=== PATIENT | female | born 1940 | race African-American/Black ===

== ENCOUNTER 2019-03-20 03:16 | Inpatient (IN) ==
[2019-03-20 03:41] LABS: Basophils # 0.1 K/mm3 (0-0.2); Basophils % 0.5 % (0.1-2.0); Eosinophils # 0.1 K/mm3 (0.0-0.4); Eosinophils % 0.5 % (0.1-12.0); Hemoglobin 10.9 g/dL (12.2-16.2); Lymphocytes # 5.6 K/mm3 (0.7-4.5); Mean Corpuscular HGB Conc 30.3 g/dL (31.8-35.4); Mean Corpuscular Volume 102.4 fl (81-99); Mean Platelet Volume 8.6 fl (7.4-10.4); Monocytes # 0.4 K/mm3 (0.1-1.0); Monocytes % 3.6 % (1.7-9.3); Neutrophils # 4.7 K/mm3 (1.8-7.8); Neutrophils % 43.5 % (37.0-80.0); Platelet Count 261 K/mm3 (142-424); Red Blood Count 3.52 M/mm3 (4.20-5.40); Red Cell Distribution Width 13.2 % (11.5-17.5); White Blood Count 10.8 K/mm3 (4.8-10.8)
[2019-03-20 03:45] LABS: ABG Base Excess -6.6 mmol/L (-2.4-2.3); ABG HCO3 20.3 mmhg (22.0-26.0); ABG Oxygen Saturation 88 % (90-100); ABG PCO2 45.4 mmhg (35.0-45.0); ABG PH 7.27 mmol/L (7.35-7.45); ABG TCO2 21.7 mmhg (23-27)
[2019-03-20 03:46] LABS: Alanine Aminotransferase 28 U/L (12-78); Albumin/Globulin Ratio 0.5 (1.1-1.8); Alkaline Phosphatase 66 U/L (46-116); Anion Gap 17.2 mEq/L (5-15); Aspartate Amino Transferase 36 U/L (15-37); Bilirubin,Total 0.2 mg/dL (0.2-1.0); Blood Urea Nitrogen 49 mg/dL (7-18); Calcium 8.4 mg/dL (8.5-10.1); Carbon Dioxide 21 mmol/L (21.0-32.0); Chloride 98 mmol/L (98-107); Globulin 5.5 gm/dl (1.3-3.2); Glucose 259 mg/dL (74-106); Sodium 132 mmol/L (136-145); Total Protein,Serum 8.5 gm/dL (6.4-8.2)
[2019-03-20 03:46] LABS: Allen's Test Patient Unable
[2019-03-20 03:57] LABS: Hypochromasia 1+; Lymphocytes % 55 % (10-50); Macrocytosis 2+; Neutrophils % 41 % (42-76); Total Cells Counted 100
[2019-03-20 04:07] LABS: Microscopic, Urine URINE MICROSCOPIC (MICROSCOPIC)
[2019-03-20 04:11] LABS: Appearance,Urine CLEAR (Clear); Bilirubin,Urine Negative (Negative); Blood, Urine TRACE-I (Negative); Color,Urine YELLOW (Yellow); Glucose,Urine (UA) TRACE (Negative); Ketones,Urine Negative (Negative); Leukocyte Esterase,Urine Negative (Negative); PH,Urine 6.5 (5.0-8.5); Protein,Urine Negative (Negative); Specific Gravity, Urine 1.025 (1.005-1.030); Urobilinogen,Urine 0.2 EU/dl (0.2)
[2019-03-20 04:14] LABS: RBC,Urine Occasional #/hpf (0-3); WBC,Urine Occasional #/hpf (0-3)
--- NOTE | 2019-03-20 04:21 | Emergency Department Note ---
ED Disposition Clinical Impression: HCAP (healthcare-associated pneumonia), Dystonia, Obesity (BMI 30-39.9), Hyponatremia, Tinea corporis Acute renal failure (ARF) Qualifiers: Acute renal failure type: unspecified Qualified Code(s): N17.9 - Acute kidney failure, unspecified Sepsis Qualifiers: Sepsis type: sepsis due to unspecified organism Qualified Code(s): A41.9 - Sepsis, unspecified organism Schizophrenia Qualifiers: Schizophrenia type: unspecified Qualified Code(s): F20.9 - Schizophrenia, unspecified Fall Qualifiers: Encounter type: initial encounter Qualified Code(s): W19.XXXA - Unspecified fall, initial encounter Diabetes mellitus Qualifiers: Diabetes mellitus type: type 2 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 Diabetes mellitus complication status: with other specified complication Qualified Code(s): E11.69 - Type 2 diabetes mellitus with other specified complication; 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 The time I documented below is in addition to time spent performing reported procedures but includes the following listed in this critical care notation. Medical Decision Making - Medical Records Medical records reviewed: Yes: I reviewed the patient's medical records. - [place] Inquiry Pt receiving controlled substance: No Vital Signs: 03/20/19 03:17 03/20/19 04:14 Temperature 98 F Temperature Source Oral Pulse Rate [Right Radial] 100 H 87 Respiratory Rate 18 18 Blood Pressure [Right Arm] 160/75 H 138/76 Blood Pressure Mean [Right Arm] 103 96 02 Sat by Pulse Oximetry 95 95 Oxygen Delivery Method Room Air Room Air - Lab Data Lab results reviewed: Yes: I reviewed the patient's lab results. Lab Results 03/20/19 03:23: Sodium 132 L, Potassium 4.2, Chloride 98, Carbon Dioxide 21, Anion Gap 17.2 H, BUN 49 H, Creatinine 4.13 H, Estimated Creat Clear 16, Estimated GFR 10 L*, Est GFR ( Amer) 13 L*, Glucose 259 H, Calcium 8.4 L, Total Bilirubin 0.2, AST 36, ALT 28, Alkaline Phosphatase 66, Troponin I < 0.02, Total Protein 8.5 H, Albumin 3.0 L, Globulin 5.5 H, Albumin/Globulin Ratio 0.5 L 03/20/19 03:23: WBC 10.8, RBC 3.52 L, Hgb 10.9 L, Hct 36.0 L, MCV 102.4 H, MCH 31.0, MCHC 30.3 L, RDW 13.2, Plt Count 261, MPV 8.6, Neut % (Auto) 43.5, Lymph % (Auto) 52.0 H, [place] % (Auto) 3.6, Eos % (Auto) 0.5, Baso % (Auto) 0.5, Neut # (Auto) 4.7, Lymph # (Auto) 5.6 H, [place] # (Auto) 0.4, Eos # (Auto) 0.1, Baso # (Auto) 0.1, Total Counted 100, Neutrophils % (Manual) 41 L, Band Neutrophils % 4.0, Lymphocytes % (Manual) 55 H, Platelet Estimate Normal, Hypochromasia 1+, Poikilocytosis 1+, Macrocytosis 2+ 03/20/19 03:23: Total Valproic Acid 62.9 03/20/19 03:23: Total Creatine Kinase 383 H 03/20/19 03:23: Hemoglobin A1c 8.2 H 03/20/19 03:25: Specimen Source Right radial, O2 % 28%, 2 lpm nvc, ABG pH 7.27 L , ABG pCO2 45.4 H, ABG pO2 64.0 L, ABG HCO3 20.3 L, ABG Total CO2 21.7 L, ABG O2 Saturation 88 L, ABG Base Excess -6.6 L, Emmett Test Patient unable 03/20/19 03:54: Lactate 2.6 H 03/20/19 03:54: Ammonia 18 L 03/20/19 04:00: Urine Color Yellow, Urine Appearance Clear, Urine pH 6.5, Ur Specific [place] 1.025, Urine Protein Negative, Urine Glucose (UA) Trace, Urine Ketones Negative, Urine Blood Trace-i, Urine Nitrate Negative, Urine Bilirubin Negative, Urine Urobilinogen 0.2, Ur Leukocyte Esterase Negative, Urine RBC Occasional, Urine WBC Occasional, Ur Squamous Epith Cells 10-20, Ur Renal Epithelial Cell 3-5 Result diagrams: 03/20/19 03:23 03/20/19 03:23 Orders (Tests/Meds): ED MEDICATIONS Generic Name Dose Route Start Last Admin Trade Name Freq PRN Reason Stop Dose Admin Sodium Chloride 1,000 mls @ 999 mls/hr 03/20/19 04:15 03/20/19 04:12 Sod Chlor 0.9% 1000ml Bag IV 03/20/19 05:15 999 mls/hr .Q1H1M MICHAEL Administration Clindamycin Phosphate 900 mg/ 106 mls @ 100 mls/hr 03/20/19 04:45 03/20/19 04:35 Sodium Chloride IV 04/03/19 04:44 100 mls/hr Q6H MICHAEL Administration Protocol Piperacillin Sod/Tazobactam 100 mls @ 200 mls/hr 03/20/19 04:45 03/20/19 04:35 Sod 4.5 gm/ Sodium Chloride IV 04/03/19 04:44 200 mls/hr Q6H MICHAEL Administration Protocol Discontinued Medications Generic Name Dose Route Start Last Admin Trade Name Freq PRN Reason Stop Dose Admin Methylprednisolone Sodium Succinate 125 mg 03/20/19 04:08 03/20/19 04:12 Solu-Medrol 125mg/2ml Vial IV 03/20/19 04:09 125 mg ONCE ONE Administration Ondansetron HCl 4 mg 03/20/19 04:08 03/20/19 04:12 Zofran 4mg/2ml Vial IV 03/20/19 04:09 4 mg ONCE ONE Administration ORDERS Category Date Time Status CT cervical spine wo con Stat Cat Scan 03/20/19 03:[address] head/brain wo con Stat Cat Scan 03/20/19 03:24 Taken XR chest AP Stat Exams 03/20/19 03:25 Taken XR pelvis 1-2V Stat Exams 03/20/19 03:25 Taken Blood Culture Stat Micro 03/20/19 03:25 Received - Radiology Data #1 Image(s): Chest, Pelvis Image Reviewed: Yes I reviewed the patient's radiology image Preliminary Findings: Abnormal (prob rt pneumonia ), No Fracture Seen - CT Data CT Scan: Head, C-Spine Time Received: 05:[address] Reviewed: Yes: I have viewed the radiologist's interpretation Preliminary Findings: No Fracture Seen - ECG Data Tracing #1 Arrhythmias present: sinus tach Ischemic changes: non-specific ST-T wave changes Altered Mental Status HPI - General Chief Complaint: Altered Mental Status Stated Complaint: Altered Mental Status Time Seen by Provider: 03/20/19 03:35 Mode of Arrival: EMS Source of Information: Patient, EMS, Medical Record Limitations: Altered Mental Status Description of Symptoms (Recalled from ER Triage Doc. by RN): pt fell tonight at approx 2230 pt was placed back in bed by staff and had some vomiting at that time. At approx 0235 this morning, ems was called and notified that patient was found in the floor once again by staff and is now having altered mental status and snoring respirations. - History of Present Illness HPI narrative: [facility] and again later with change in mental status and was brought to ed for eval - she had vomited and no def chest pain and no def sz - MD complaint: altered mental status Onset (ago): day(s) Timing confirmed by: other (jail staff) Severity: moderate Associated symptoms: denies other symptoms - Related Data Home Medications Medication Instructions Recorded Confirmed Aspirin [Aspirin 81mg chewable 81 mg PO DAILY 05/18/18 03/20/19 tab] Baclofen [Lioresal 10mg tablet] 10 mg PO DAILY 05/18/18 03/20/19 Benztropine Mesylate [Cogentin 1mg 0 mg PO DAILY 05/18/18 03/20/19 tablet] Divalproex Sodium [Depakote] 250 mg PO ONCE 05/18/18 03/20/19 Lactulose [Enulose] 10 gm PO DAILYP PRN 05/18/18 03/20/19 Lisinopril [Lisinopril 10mg Tab] 10 mg PO DAILY 05/18/18 03/20/19 Metoprolol Succinate [Toprol Xl] 50 mg PO DAILY 05/18/18 03/20/19 Triamterene/Hydrochlorothiazid 1 each PO NEEDED PRN 05/18/18 03/20/19 [Maxzide 75 mg-50 mg Tablet] risperiDONE [Risperdal 0.5mg 0.5 mg PO DAILY 05/18/18 03/20/19 tablet] albuterol sulfate HFA 90 2 puff INHALATION Q4-6H PRN 02/12/19 03/20/19 mcg/actuation aerosol inhaler citalopram 20 mg tablet 20 mg PO DAILY tab 02/12/19 03/20/19 divalproex ER 500 mg 500 mg PO QHS tab 02/12/19 03/20/19 tablet,extended release 24 hr fesoterodine ER 8 mg 8 mg PO DAILY 02/12/19 03/20/19 tablet,extended release 24 hr ondansetron HCl 4 mg tablet 4 mg PO TID PRN 02/12/19 03/20/19 Furosemide [Furosemide 20mg Tab] 20 mg PO DAILY 03/20/19 03/20/19 Sulfamethoxazole/Trimethoprim 1 each PO BID 03/20/19 03/20/19 [Bactrim DS tablet] cephALEXin [Cephalexin 500mg Tab] 500 mg PO TID 03/20/19 03/20/19 Allergies Allergy/AdvReac Type Severity Reaction Status Date / Time No Known Allergies Allergy Verified 03/20/19 03:28 [facility] History - Hepatitis A Screen Drug use history?: No High risk sexual behaviors?: No History of sexually transmitted infection?: No Currently employed?: No Childcare worker?: No Do you have indoor plumbing?: Yes Do you have electricity?: Yes Attestation statement:: This patient has been screened for Hepatitis A risk factors. I have reviewed the patient's past medical history: Yes Medical History: Denies:: Diabetes Mellitus Type 2 - Social History Smoking Status: Unknown if ever smoked Alcohol Intake: never Occupational Status: retired ROS Obtained: Yes All systems reviewed & no additional complaints - Constitutional Constitutional: Reports as per HPI, Denies fever(s), Reports weakness - Eyes Eyes: Denies change in vision - ENT Ears, Nose, Mouth, and Throat: Denies sore throat - Cardiovascular Cardiovascular: Denies chest pain at rest - Respiratory Respiratory: No cough - Gastrointestinal Gastrointestingal: Denies: abdominal pain - Genitourinary Female Genitourinary: Denies hematuria - Musculoskeletal Musculoskeletal: Denies joint pain - Integumentary/Breasts Skin/Breast: Denies rash - Neurologic Neurologic: Reports as per HPI, Denies focal weakness, Reports frequent falls, Denies seizure-like activity Physical Exam - General General appearance: alert, obese - Head Head exam: normocephalic - Eye Eye exam: Present: PERRL, EOMI. Absent: scleral icterus - ENT ENT exam: Present: mucous membranes dry, other (tardive dyskinesia) - Neck Neck exam: Present: trachea midline. Absent: meningismus - Respiratory Respiratory exam: Present: other (dec bs on rt ). Absent: respiratory distress - Cardiovascular Cardiovascular exam: Present: regular rate, systolic murmur, +S4 - Abdominal Exam Abdominal exam: Present: soft - Extremities Exam Extremities exam: Absent: calf tenderness - Neurological Exam Neurological exam: Present: alert, CN II-XII intact, other (positive tremor and inc tone ). Absent: motor sensory deficit - Psychiatric Psychiatric exam: Present: flat affect - Skin Skin exam: Present: rash (consistent with tinea )
--- NOTE | 2019-03-20 08:21 | History & Physical Report ---
*Admission Date: 03/20/19 *Chief complaint: altered mental status *History of present illness: this bf is resident of [facility] and has schizophrenia and niddm and djd - she usually is alert and ambulatory and has tartive dyskinesia - she had [facility] earlier in evening and again later and had change in mental status and was sent to the ed and found to be in arf with prob rt hcap - she meet sepsis criteria and was admitted for eval and treatment - she denied any pain and no hx of sz [facility] History I have reviewed the patient's past medical history: Yes Medical History: Reports:: Diabetes Mellitus Type 2 *Have you ever received a pneumonia vaccine?: (MENTAL STATUS ALTERED AT THIS TIME) *Have you received a flu vaccine this season?: (MENTAL STATUS ALTERED AT THIS TIME) - *Social History Smoking Status: Unknown if ever smoked Alcohol Intake: never *Occupational Status:: retired Housing: assisted living facility *Travel in the last 8 weeks: None Family Hx:: Unable to obtain Review of Systems - Review of Systems Review of systems:: pertinent systems reviewed and negative unless documented below - Constitutional Reports weakness, Denies headache(s) - Eyes Denies change in vision - ENT Denies sore throat - *Cardiovascular Denies chest pain at rest - *Respiratory Reports cough, Denies coughing up blood, Denies pain on inspiration - *Gastrointestinal Reports vomiting, Denies abdominal pain - *Genitourinary Denies blood in urine - *Musculoskeletal Denies joint pain, Denies neck pain - Integumentary/Breasts Reports rash (has tinea type rash to skin ) - *Neurologic Reports frequent falls, Reports weakness, Denies localized weakness, Denies seizure-like activity - Psychiatric Denies anxiety Meds Home Medications Medication Instructions Recorded Confirmed Type Aspirin [Aspirin 81mg chewable 81 mg PO DAILY 05/18/18 03/20/19 History tab] Baclofen [Lioresal 10mg tablet] 10 mg PO DAILY 05/18/18 03/20/19 History Benztropine Mesylate [Cogentin 1mg 0 mg PO DAILY 05/18/18 03/20/19 History tablet] Divalproex Sodium [Depakote] 250 mg PO ONCE 05/18/18 03/20/19 History Lactulose [Enulose] 10 gm PO DAILYP PRN 05/18/18 03/20/19 History Lisinopril [Lisinopril 10mg Tab] 10 mg PO DAILY 05/18/18 03/20/19 History Metoprolol Succinate [Toprol Xl] 50 mg PO DAILY 05/18/18 03/20/19 History Triamterene/Hydrochlorothiazid 1 each PO NEEDED PRN 05/18/18 03/20/19 History [Maxzide 75 mg-50 mg Tablet] risperiDONE [Risperdal 0.5mg 0.5 mg PO DAILY 05/18/18 03/20/19 History tablet] albuterol sulfate HFA 90 2 puff INHALATION Q4-6H PRN 02/12/19 03/20/19 History mcg/actuation aerosol inhaler citalopram 20 mg tablet 20 mg PO DAILY tab 02/12/19 03/20/19 History divalproex ER 500 mg 500 mg PO QHS tab 02/12/19 03/20/19 History tablet,extended release 24 hr fesoterodine ER 8 mg 8 mg PO DAILY 02/12/19 03/20/19 History tablet,extended release 24 hr ondansetron HCl 4 mg tablet 4 mg PO TID PRN 02/12/19 03/20/19 History Furosemide [Furosemide 20mg Tab] 20 mg PO DAILY 03/20/19 03/20/19 History Sulfamethoxazole/Trimethoprim 1 each PO BID 03/20/19 03/20/19 History [Bactrim DS tablet] cephALEXin [Cephalexin 500mg Tab] 500 mg PO TID 03/20/19 03/20/19 History Allergies Allergy/AdvReac Type Severity Reaction Status Date / Time No Known Allergies Allergy Verified 03/20/19 03:28 Exam Vital signs and Labs for Last 24 Hours: Temp Pulse Resp BP Pulse Ox 96.0 F L 90 18 109/51 L 92 L 03/20/19 06:08 03/20/19 06:42 03/20/19 06:08 03/20/19 06:08 03/20/19 06:08 Laboratory Results - last 24 hr 03/20/19 03:23: Sodium 132 L, Potassium 4.2, Chloride 98, Carbon Dioxide 21, Anion Gap 17.2 H, BUN 49 H, Creatinine 4.13 H, Estimated Creat Clear 16, Estimated GFR 10 L*, Est GFR ( Amer) 13 L*, Glucose 259 H, Calcium 8.4 L, Total Bilirubin 0.2, AST 36, ALT 28, Alkaline Phosphatase 66, Troponin I < 0.02, Total Protein 8.5 H, Albumin 3.0 L, Globulin 5.5 H, Albumin/Globulin Ratio 0.5 L 03/20/19 03:23: WBC 10.8, RBC 3.52 L, Hgb 10.9 L, Hct 36.0 L, MCV 102.4 H, MCH 31.0, MCHC 30.3 L, RDW 13.2, Plt Count 261, MPV 8.6, Neut % (Auto) 43.5, Lymph % (Auto) 52.0 H, [place] % (Auto) 3.6, Eos % (Auto) 0.5, Baso % (Auto) 0.5, Neut # (Auto) 4.7, Lymph # (Auto) 5.6 H, [place] # (Auto) 0.4, Eos # (Auto) 0.1, Baso # (Auto) 0.1, Total Counted 100, Neutrophils % (Manual) 41 L, Band Neutrophils % 4.0, Lymphocytes % (Manual) 55 H, Platelet Estimate Normal, Hypochromasia 1+, Poikilocytosis 1+, Macrocytosis 2+ 03/20/19 03:23: Total Valproic Acid 62.9 03/20/19 03:23: Total Creatine Kinase 383 H 03/20/19 03:23: Hemoglobin A1c 8.2 H 03/20/19 03:25: Specimen Source Right radial, O2 % 28%, 2 lpm nvc, ABG pH 7.27 L , ABG pCO2 45.4 H, ABG pO2 64.0 L, ABG HCO3 20.3 L, ABG Total CO2 21.7 L, ABG O2 Saturation 88 L, ABG Base Excess -6.6 L, Emmett Test Patient unable 03/20/19 03:54: Lactate 2.6 H 03/20/19 03:54: Ammonia 18 L 03/20/19 04:00: Urine Color Yellow, Urine Appearance Clear, Urine pH 6.5, Ur Specific [place] 1.025, Urine Protein Negative, Urine Glucose (UA) Trace, Urine Ketones Negative, Urine Blood Trace-i, Urine Nitrate Negative, Urine Bilirubin Negative, Urine Urobilinogen 0.2, Ur Leukocyte Esterase Negative, Urine RBC Occasional, Urine WBC Occasional, Ur Squamous Epith Cells 10-20, Ur Renal Epithelial Cell 3-5 I & O for Last 24 hours: Intake & Output 03/17/19 03/18/19 03/19/19 03/20/19 11:59 11:59 11:59 11:59 Weight 207 lb - Constitutional no acute distress, obese - *Routine HEENT Exam Head: Present: normocephalic Eye: Present: EOMI, PERRL. Absent: conjunctival icterus ENT: Present: mucous membranes dry Comments: protruding tongue with swollen lips which are near baseline - *Routine Neck Exam Absent: JVD - *Routine Respiratory Exam Present: decreased breath sounds, rhonchi - *Routine Cardiovascular Exam Present: RRR, murmur, S4 - *Routine Abdominal Exam Present: soft - *Routine Extremities Exam Present: edema. Absent: calf tenderness - *Routine Skin Exam Present: intact - *Routine Neurological Exam Present: alert, CN II-XII intact. Absent: oriented X3, motor deficit, nystagmus, facial asymmetry has element of inc tone upper ext - Routine Psychiatric Exam Present: unable to assess Assessment and Plan (1) HCAP (healthcare-associated pneumonia) Current visit: Yes Status: Acute Category: Medical Code(s): J18.9 - Pneumonia, unspecified organism (2) Acute renal failure (ARF) Current visit: Yes Status: Acute Qualifiers: Acute renal failure type: unspecified Qualified Code(s): N17.9 - Acute kidney failure, unspecified Category: Medical Code(s): N17.9 - Acute kidney failure, unspecified (3) Sepsis Current visit: Yes Status: Acute Qualifiers: Sepsis type: sepsis due to unspecified organism Qualified Code(s): A41.9 - Sepsis, unspecified organism Category: Medical Code(s): A41.9 - Sepsis, unspecified organism (4) Schizophrenia Current visit: Yes Status: Acute Qualifiers: Schizophrenia type: unspecified Qualified Code(s): F20.9 - Schizophrenia, unspecified Category: Medical Code(s): F20.9 - Schizophrenia, unspecified (5) Dystonia Current visit: Yes Status: Acute Category: Medical Code(s): G24.9 - Dystonia, unspecified (6) Obesity (BMI 30-39.9) Current visit: Yes Status: Acute Category: Medical Code(s): E66.9 - Obe sity, unspecified
--- NOTE | 2019-03-20 10:13 | Pharmacy Consult Notes ---
[facility] Pharmacy VTE Monitoring - Patient Demographics Admission date: 03/20/19 Report Date: 03/20/19 Time: 10:13 Allergies/Adverse Reactions: Patient Allergies No Known Allergies Allergy (Verified 03/20/19 03:28) Height: 1.65 m Weight: 93.894 kg Patient Problems: Current Active Problems (Updated 03/20/19 @ 05:10 by Bryon Beaulieu MD) Fall (Acute) HCAP (healthcare-associated pneumonia) (Acute) Acute renal failure (ARF) (Acute) Sepsis (Acute) Schizophrenia (Acute) Dystonia (Acute) Obesity (BMI 30-39.9) (Acute) Diabetes mellitus (Acute) Hyponatremia (Acute) Tinea corporis (Acute) - VTE Risk Labs: VTE Related Lab Results Hgb 10.9 g/dL (12.2-16.2) L 03/20/19 03:23 Hct 36.0 % (37.0-47.0) L 03/20/19 03:23 Plt Count 261 K/mm3 (142-424) 03/20/19 03:23 BUN 49 mg/dL (7-18) H 03/20/19 03:23 Creatinine 4.13 mg/dL (0.55-1.02) H 03/20/19 03:23 Estimated Creat Clear 16 mL/min (50-200) 03/20/19 03:23 Was VTE Risk Assessment Performed: Yes VTE Score: 4 VTE Risk Level: Low Risk - Prophylaxis VTE Prophylaxis Ordered?: Yes Types of VTE Prophylaxis: Pharmacological Pharmacologic Type: Enoxaparin
[2019-03-20 20:27] LABS: Eosinophils % 0.1 % (0.1-12.0); Hematocrit 31.7 % (37.0-47.0); Mean Corpuscular HGB Conc 30.8 g/dL (31.8-35.4); Mean Corpuscular Volume 100.4 fl (81-99); Mean Platelet Volume 9.1 fl (7.4-10.4); Monocytes # 0.3 K/mm3 (0.1-1.0); Monocytes % 3.3 % (1.7-9.3); Neutrophils # 6.9 K/mm3 (1.8-7.8); Neutrophils % 84.6 % (37.0-80.0); Platelet Count 230 K/mm3 (142-424); Red Blood Count 3.16 M/mm3 (4.20-5.40); Red Cell Distribution Width 13.1 % (11.5-17.5); White Blood Count 8.2 K/mm3 (4.8-10.8)
[2019-03-20 20:29] LABS: Hemoglobin 9.8 g/dL (12.2-16.2)
[2019-03-20 20:32] LABS: Anion Gap 15.6 mEq/L (5-15); Calcium 8.2 mg/dL (8.5-10.1)
[2019-03-21 10:41] LABS: Basophils % 0.2 % (0.1-2.0); Eosinophils % 0.1 % (0.1-12.0); Hematocrit 30.7 % (37.0-47.0); Hemoglobin 9.4 g/dL (12.2-16.2); Lymphocytes # 1.7 K/mm3 (0.7-4.5); Lymphocytes % 21.2 % (10-50); Mean Corpuscular HGB Conc 30.5 g/dL (31.8-35.4); Mean Corpuscular Volume 101.1 fl (81-99); Mean Platelet Volume 8.7 fl (7.4-10.4); Monocytes # 0.5 K/mm3 (0.1-1.0); Monocytes % 6.8 % (1.7-9.3); Neutrophils # 5.6 K/mm3 (1.8-7.8); Neutrophils % 71.7 % (37.0-80.0); Platelet Count 215 K/mm3 (142-424); Red Blood Count 3.04 M/mm3 (4.20-5.40); Red Cell Distribution Width 13.5 % (11.5-17.5); White Blood Count 7.8 K/mm3 (4.8-10.8)
[2019-03-21 10:44] LABS: Calcium 8.1 mg/dL (8.5-10.1)
--- NOTE | 2019-03-21 10:58 | Progress Note ---
Internal Medicine - PN: Subj *Date: 03/21/19 *Time: 10:55 Interval history: more alert and near baseline - pt labs better and will continue current abx Exam Vital signs and Labs for Last 24 Hours: Temp Pulse Resp BP Pulse Ox 98.3 F 90 20 126/45 L 97 03/21/19 07:40 03/21/19 08:00 03/21/19 07:40 03/21/19 07:40 03/21/19 08:35 Laboratory Results - last 24 hr 03/20/19 06:22: POC Glucose 248 H 03/20/19 11:30: POC Glucose 249 H 03/20/19 12:00: Troponin I < 0.02 03/20/19 16:57: POC Glucose 196 H 03/20/19 20:03: WBC 8.2, RBC 3.16 L, Hgb 9.8 L D, Hct 31.7 L, MCV 100.4 H, MCH 30.9, MCHC 30.8 L, RDW 13.1, Plt Count 230, MPV 9.1, Neut % (Auto) 84.6 H, Lymph % (Auto) 12.0, [place] % (Auto) 3.3, Eos % (Auto) 0.1, Baso % (Auto) 0.0 L, Neut # (Auto) 6.9, Lymph # (Auto) 1.0, [place] # (Auto) 0.3, Eos # (Auto) 0.0, Baso # (Auto) 0.0 03/20/19 20:03: Sodium 133 L, Potassium 5.6 H D, Chloride 101, Carbon Dioxide 22, Anion Gap 15.6 H, BUN 44 H, Creatinine 2.94 H D, Estimated Creat Clear 24, Estimated GFR 15 L*, Est GFR ( Amer) 19 L* D, Glucose 152 H D, Calcium 8.2 L 03/20/19 20:05: POC Glucose 168 H 03/21/19 06:12: POC Glucose 120 H 03/21/19 10:04: WBC 7.8, RBC 3.04 L, Hgb 9.4 L, Hct 30.7 L, MCV 101.1 H, MCH 30.8, MCHC 30.5 L, RDW 13.5, Plt Count 215, MPV 8.7, Neut % (Auto) 71.7, Lymph % (Auto) 21.2, [place] % (Auto) 6.8, Eos % (Auto) 0.1, Baso % (Auto) 0.2, Neut # (Auto) 5.6, Lymph # (Auto) 1.7, [place] # (Auto) 0.5, Eos # (Auto) 0.0, Baso # (Auto) 0.0 03/21/19 10:04: Sodium 133 L, Potassium 5.0, Chloride 102, Carbon Dioxide 23, Anion Gap 13.0, BUN 36 H, Creatinine 2.24 H D, Estimated Creat Clear 31, Estimated GFR 21 L, Est GFR ( Amer) 26 L D, Glucose 184 H D, Calcium 8.1 L I & O for Last 24 hours: Intake & Output 03/18/19 03/19/19 03/20/19 03/21/19 11:59 11:59 11:59 11:59 Intake Total 3377 / 3377 Output Total 2170 / 2170 Balance 1207 / 1207 Weight 207 lb 207 lb 0.225 oz Microbiology Reports for the Last 24 Hours: Microbiology 03/20/19 03:25 Blood Blood Culture - Preliminary Gram Positive Cocci 03/20/19 03:25 Blood Blood Culture - Preliminary - Constitutional no acute distress, obese - *Routine HEENT Exam Head: Present: normocephalic Eye: Present: EOMI, PERRL ENT: Present: mucous membranes dry - *Routine Neck Exam Absent: JVD - *Routine Respiratory Exam Present: decreased breath sounds - *Routine Cardiovascular Exam Present: RRR, murmur - *Routine Abdominal Exam Present: soft - *Routine Extremities Exam Present: edema. Absent: calf tenderness - *Routine Skin Exam Comments: rash better - *Routine Neurological Exam Present: alert, CN II-XII intact - Routine Psychiatric Exam Present: unable to assess Assessment and Plan (1) HCAP (healthcare-associated pneumonia) Current visit: Yes Status: Acute Category: Medical Code(s): J18.9 - Pneumonia, unspecified organism (2) Acute renal failure (ARF) Current visit: Yes Status: Acute Qualifiers: Acute renal failure type: unspecified Qualified Code(s): N17.9 - Acute kidney failure, unspecified Category: Medical Code(s): N17.9 - Acute kidney failure, unspecified (3) Sepsis Current visit: Yes Status: Acute Qualifiers: Sepsis type: sepsis due to unspecified organism Qualified Code(s): A41.9 - Sepsis, unspecified organism Category: Medical Code(s): A41.9 - Sepsis, unspecified organism (4) Schizophrenia Current visit: Yes Status: Acute Qualifiers: Schizophrenia type: unspecified Qualified Code(s): F20.9 - Schizophrenia, unspecified Category: Medical Code(s): F20.9 - Schizophrenia, unspecified (5) Dystonia Current visit: Yes Status: Acute Category: Medical Code(s): G24.9 - Dystonia, unspecified (6) Obesity (BMI 30-39.9) Current visit: Yes Status: Acute Category: Medical Code(s): E66.9 - Obesity, unspecified
--- NOTE | 2019-03-22 08:17 | Progress Note ---
Internal Medicine - PN: Subj *Date: 03/22/19 *Time: 08:16 Interval history: Patient is awake, pleasant, talkative, has an obvious severe tremor which appears to be of the essential type. This prevents her from feeding herself and 1 of our aides is feeding her. Patient has no complaints of pain. Exam Vital signs and Labs for Last 24 Hours: Temp Pulse Resp BP Pulse Ox 98.4 F 82 18 102/58 L 91 L 03/22/19 04:00 03/22/19 06:25 03/22/19 04:00 03/22/19 04:00 03/22/19 06:25 Laboratory Results - last 24 hr 03/21/19 10:04: WBC 7.8, RBC 3.04 L, Hgb 9.4 L, Hct 30.7 L, MCV 101.1 H, MCH 30.8, MCHC 30.5 L, RDW 13.5, Plt Count 215, MPV 8.7, Neut % (Auto) 71.7, Lymph % (Auto) 21.2, [place] % (Auto) 6.8, Eos % (Auto) 0.1, Baso % (Auto) 0.2, Neut # (Auto) 5.6, Lymph # (Auto) 1.7, [place] # (Auto) 0.5, Eos # (Auto) 0.0, Baso # (Auto) 0.0 03/21/19 10:04: Sodium 133 L, Potassium 5.0, Chloride 102, Carbon Dioxide 23, Anion Gap 13.0, BUN 36 H, Creatinine 2.24 H D, Estimated Creat Clear 31, Estimated GFR 21 L, Est GFR ( Amer) 26 L D, Glucose 184 H D, Calcium 8.1 L 03/21/19 11:13: POC Glucose 181 H 03/21/19 17:06: POC Glucose 133 H I & O for Last 24 hours: Intake & Output 03/19/19 03/20/19 03/21/19 03/22/19 11:59 11:59 11:59 11:59 Intake Total 3377 / 3377 1835 / 1835 Output Total 2170 / 2170 1100 / 1100 Balance 1207 / 1207 735 / 735 Weight 207 lb 207 lb 0.225 oz 207 lb 0.225 oz Microbiology Reports for the Last 24 Hours: Microbiology 03/20/19 03:25 Blood Blood Culture - Preliminary Gram Positive Cocci 03/20/19 03:25 Blood Blood Culture - Preliminary Narrative: Tremor noted as before. Oropharynx moist but clear. No JVD. Pulse rate regular. Anterior lung boone are clear. Abdomen soft and nontender. Assessment and Plan (1) HCAP (healthcare-associated pneumonia) Current visit: Yes Status: Acute Category: Medical Code(s): J18.9 - Pneumonia, unspecified organism (2) Acute renal failure (ARF) Current visit: Yes Status: Acute Qualifiers: Acute renal failure type: unspecified Qualified Code(s): N17.9 - Acute kidney failure, unspecified Category: Medical Code(s): N17.9 - Acute kidney failure, unspecified (3) Sepsis Current visit: Yes Status: Acute Qualifiers: Sepsis type: sepsis due to unspecified organism Qualified Code(s): A41.9 - Sepsis, unspecified organism Category: Medical Code(s): A41.9 - Sepsis, unspecified organism (4) Schizophrenia Current visit: Yes Status: Acute Qualifiers: Schizophrenia type: unspecified Qualified Code(s): F20.9 - Schizophrenia, u nspecified Category: Medical Code(s): F20.9 - Schizophrenia, unspecified (5) Dystonia Current visit: Yes Status: Acute Category: Medical Code(s): G24.9 - Dystonia, unspecified (6) Obesity (BMI 30-39.9) Current visit: Yes Status: Acute Category: Medical Code(s): E66.9 - Obesity, unspecified - Assessment and plan all Dx Assessment and Plan for all problems:: Pneumonia seems to be improving. Continue current therapy. Acute kidney injury has also improved. I am unsure of her baseline but her creatinine has declined precipitously since mission. Continue to monitor tomorrow. In regards to her overall condition I do not feel at this point she is a c andidate to return to a personal retirement given her inability to feed herself. I think she would be a better candidate for long-term care/skilled care. PT/OT evaluation for fitness/placement for a facility such as this.
--- NOTE | 2019-03-22 17:02 | Cardiology Report ---
PROCEDURE: 2-D M-mode and color Doppler study INDICATIONS FOR THE TEST: Chest pain COPD Heart Murmur+ Tobacco Smoking Palpitations Fatigue Syncope Edema Hypertension Diabetes Mellitus+ Rheumatic Fever SOB PA Obesity Hyperlipidemia Family History HD Additional History schizophrenia, pneumonia, sepsis, ARF PATIENT INFORMATION HEIGHT: 60 WEIGHT: 207 GENDER: Female B/P: 109/51 2-D/M-MODE INTERPRETATION: 2-D MEASUREMENTS OBSERVED VALUES IN CMS Right Ventricular Dimension (RVDd) 2.4 Interventricular Septum (Thickness)(IVsd) 0.9 Left Ventricular Internal Dimensions(LVIDd) 4.3 Left Ventricular Posterior Wall (Thickness)(LVPWd) 0.9 Aortic Root 2.4 Aortic Cusp Separation 2.0 Left Atrial Dimensions (LAD) 3.6 2D 1. Left atrium is mildly enlarged, left ventricle is normal size, mild concentric left ventricular hypertrophy, hyperdynamic left ventricular systolic function, visually estimated ejection fraction over 65% with no regional wall motion abnormality. 2. The right atrium and right ventricle are normal size and contractility. 3. The aortic valve is minimally thickened and fibrosed. 4. The mitral and tricuspid valvular grossly normal. 5. The pulmonic valve is poorly . 6. No significant pericardial effusion noted. DOPPLER INTERROGATION: Doppler interrogation of the aortic, mitral and tricuspid valvular presence of mild mitral and tricuspid regurgitation, tricuspid regurgitation jet velocity is inadequate for calculation of the right ventricular systolic pressure, grade 1 diastolic dysfunction seen with tissue Doppler evidence of raised left atrial pressure. CONCLUSION: 1. Mildly enlarged left atrium, normal left ventricular size, mild concentric left ventricular hypertrophy, hyperdynamic left ventricular systolic function, visually estimated ejection fraction over 65% with no regional wall motion abnormality, grade 1 diastolic dysfunction seen with tissue Doppler evidence of raised left atrial pressure. 2. Mild mitral and tricuspid regurgitation 3. No significant pericardial effusion noted.
[2019-03-23 06:17] LABS: Basophils % 0.2 % (0.1-2.0); Eosinophils # 0.2 K/mm3 (0.0-0.4); Eosinophils % 2.1 % (0.1-12.0); Hematocrit 34.9 % (37.0-47.0); Hemoglobin 10.9 g/dL (12.2-16.2); Lymphocytes # 2.5 K/mm3 (0.7-4.5); Lymphocytes % 23.1 % (10-50); Mean Corpuscular HGB Conc 31.2 g/dL (31.8-35.4); Mean Corpuscular Volume 99.7 fl (81-99); Mean Platelet Volume 7.9 fl (7.4-10.4); Monocytes # 0.6 K/mm3 (0.1-1.0); Monocytes % 5.5 % (1.7-9.3); Neutrophils # 7.6 K/mm3 (1.8-7.8); Neutrophils % 69.1 % (37.0-80.0); Platelet Count 220 K/mm3 (142-424); Red Cell Distribution Width 13.2 % (11.5-17.5); White Blood Count 11.1 K/mm3 (4.8-10.8)
[2019-03-23 06:25] LABS: Anion Gap 12.3 mEq/L (5-15); Calcium 8.5 mg/dL (8.5-10.1)
--- NOTE | 2019-03-23 08:15 | Progress Note ---
Internal Medicine - PN: Subj *Date: 03/23/19 *Time: 08:15 Exam Vital signs and Labs for Last 24 Hours: Temp Pulse Resp BP Pulse Ox 98.4 F 88 18 109/85 L 97 03/23/19 08:00 03/23/19 08:00 03/23/19 08:00 03/23/19 08:00 03/23/19 08:00 Laboratory Results - last 24 hr 03/21/19 20:55: POC Glucose 146 H 03/22/19 05:44: POC Glucose 144 H 03/22/19 11:06: POC Glucose 160 H 03/22/19 16:17: POC Glucose 171 H 03/22/19 20:45: POC Glucose 134 H 03/23/19 04:26: Stl Aeromonas (PCR) Not detected, Stl C. cayetanensis PCR Not detected, Stool Rotavirus (PCR) Not detected, Stl Adenov F 40/41 PCR Not detected, Stool Astrovirus (PCR) Not detected, Stool Campylobacter PCR Not detected, Stl C.difficile Tox PCR Not detected, Stool Cryptosporidium PCR Not detected, Stl E.coli Shiga Tox PCR Not detected, Stool E coli O157 PCR Not detected, Stl Enterotoxigenic E PCR Not detected, Stool EPEC (PCR) Not detected, Stool EAEC (PCR) Not detected, Stl E. histolytica PCR Not detected, Stool Giardia Lamblia PCR Not detected, Stool Salmonella PCR Not detected, Stool Sapovirus (PCR) Not detected, Stl P. shigelloides PCR Not detected, Stl Shigella/EIEC PCR Not detected, St Y.enterocolitica PCR Not detected, Stool Vibrio (PCR) Not detected, Stl Vibrio cholerae PCR Not detected, Stl Norovirus GI/GII PCR Not detected 03/23/19 06:09: WBC 11.1 H D, RBC 3.50 L, Hgb 10.9 L, Hct 34.9 L, MCV 99.7 H, MCH 31.2, MCHC 31.2 L, RDW 13.2, Plt Count 220, MPV 7.9, Neut % (Auto) 69.1, Lymph % (Auto) 23.1, [place] % (Auto) 5.5, Eos % (Auto) 2.1, Baso % (Auto) 0.2, Neut # (Auto) 7.6, Lymph # (Auto) 2.5, [place] # (Auto) 0.6, Eos # (Auto) 0.2, Baso # (Auto) 0.0 03/23/19 06:09: Sodium 136, Potassium 4.3, Chloride 101, Carbon Dioxide 27, Anion Gap 12.3, BUN 13 D, Creatinine 1.22 H D, Estimated Creat Clear 58, Estimated GFR 43 L, Est GFR ( Amer) 52 L D, Glucose 139 H, Calcium 8.5 03/23/19 06:46: POC Glucose 139 H I & O for Last 24 hours: Intake & Output 03/20/19 03/21/19 03/22/19 03/23/19 23:59 23:59 23:59 23:59 Intake Total 2315 / 2315 2032 / 2032 3046 / 3046 480 / 480 Output Total 700 / 700 2570 / 2570 Balance 1615 / 1615 -538 / -538 3046 / 3046 480 / 480 Weight 93.894 kg 93.9 kg 93.9 kg 95.821 kg Microbiology Reports for the Last 24 Hours: Microbiology 03/20/19 03:25 Blood Blood Culture - Preliminary Gram Positive Cocci 03/20/19 03:25 Blood Blood Culture - Preliminary Staphylococcus epidermidis Assessment and Plan (1) HCAP (healthcare-associated pneumonia) Current visit: Yes Status: Acute Category: Medical Code(s): J18.9 - Pneumonia, unspecified organism (2) Acute renal failure (ARF) Current visit: Yes Status: Acute Qualifiers: Acute renal failure type: unspecified Qualified Code(s): N17.9 - Acute kidney failure, unspecified Category: Medical Code(s): N17.9 - Acute kidney failure, unspecified (3) Sepsis Current visit: Yes Status: Acute Qualifiers: Sepsis type: sepsis due to unspecified organism Qualified Code(s): A41.9 - Sepsis, unspecified organism Category: Medical Code(s): A41.9 - Sepsis, unspecified organism (4) Schizophrenia Current visit: Yes Status: Acute Qualifiers: Schizophrenia type: unspecified Qualified Code(s): F20.9 - Schizophrenia, unspecified Category: Medical Code(s): F20.9 - Schizophrenia, unspecified (5) Dystonia Current visit: Yes Status: Acute Category: Medical Code(s): G24.9 - Dystonia, unspecified (6) Obesity (BMI 30-39.9) Current visit: Yes Status: Acute Category: Medical Code(s): E66.9 - Obesity, unspecified The patient's infection will respond to the chosen ABx?: Yes Is the patient receiving the right drug, dose, and route?: Yes Could a more targeted ABx be ordered?: No (STAPH EPI GROWING IN ONE BOTTLE. OTHER BOTTLE PENDING.)
--- NOTE | 2019-03-23 09:18 | Discharge Summary ---
General - General Admission date:: 03/20/19 <Errol Duff - 03/23/19 18:42> 03/20/19 <Ruddy Stanley - 03/23/19 09:18> Discharge date: 03/23/19 <Ruddy Stanley - 03/23/19 09:18> HPI HPI: 79-year-old female patient currently sitting up in bed, alert and oriented x2. Informed she will be discharged today she is agreeable to this. Respirations are easy even, denies any respiratory distress or shortness of breath. this bf is resident of [facility] and has schizophrenia and niddm and djd - she usually is alert and ambulatory and has tartive dyskinesia - she [facility] earlier in evening and again later and had change in mental status and was sent to the ed and found to be in arf with prob rt hcap - she meet sepsis criteria and was admitted for eval and treatment - she denied any pain and no hx of sz ( Per Dr. Beaulieu). <Ruddy Stanley - 03/23/19 09:35> Hospital Course Hospital Course: 79-year-old female patient admitted for hospital-acquired pneumonia and acute kidney injury. Pneumonia has improved per chest x-ray and assessment, and fluids. Blood cultures were can determined to be contaminated and she will be discharged on levofloxacin 750 mg P.O. for 7 days. Patient denies any respiratory distress and is currently on room air. Patient will be discharged to [facility] today, she is agreeable to that. She denies any respiratory distress, abdominal pain, or any other needs at present. <Ruddy Stanley - 03/23/19 09:35> Objective Vital signs: Temp Pulse Resp BP Pulse Ox 98.4 F 86 18 109/85 L 97 03/23/19 08:00 03/23/19 10:19 03/23/19 08:00 03/23/19 08:00 03/23/19 08:00 <Errol Duff - 03/23/19 18:42> Temp Pulse Resp BP Pulse Ox 98.4 F 88 18 109/85 L 97 03/23/19 08:00 03/23/19 08:00 03/23/19 08:00 03/23/19 08:00 03/23/19 08:00 <Ruddy Stanley 03/23/19 09:18> no acute distress, obese, disheveled <Ruddy Stanley 03/23/19 09:35> - *Routine HEENT Exam Head: Present: normocephalic. Absent: tenderness of temporal artery <Ruddy Stanley 03/23/19 09:35> Eye: Present: EOMI, PERRL, normal accommodation. Absent: conjunctival icterus <Ruddy Stanley 03/23/19 09:35> ENT: Present: mucous membranes moist <Ruddy Stanley 03/23/19 09:35> - *Routine Neck Exam Present: supple, trachea midline. Absent: JVD <Ruddy Stanley 03/23/19 09:35> - *Routine Respiratory Exam Present: CTA bilaterally. Absent: accessory muscle use, respiratory distress <Ruddy Stanley 03/23/19 09:35> - *Routine Cardiovascular Exam Present: murmur <Ruddy Stanley 03/23/19 09:35> - *Routine Abdominal Exam Present: soft, normoactive bowel sounds. Absent: tenderness <Ruddy Stanley 03/23/19 09:35> - *Routine Extremities Exam Present: edema, pulses intact. Absent: tenderness, extremity cold to touch <Ruddy Stanley 03/23/19 09:35> - Routine Back/Spine/Pelvis Exam Back/Spine: Present: full ROM. Absent: CVA tenderness <Ruddy Stanley 03/23/19 09:35> - *Routine Skin Exam Present: intact, dry. Absent: cyanosis <Ruddy Stanley 03/23/19 09:35> - *Routine Neurological Exam Present: alert, CN II-XII intact, moving all extremities <Ruddy Stanley 03/23/19 09:35> - Routine Psychiatric Exam Present: normal affect. Absent: visual hallucinations <Ruddy Stanley 03/23/19 09:35> Results Labs on day of discharge: Labs from last 24 hours 03/23/19 03/23/19 03/23/19 06:46 06:09 06:09 WBC 11.1 H D RBC 3.50 L Hgb 10.9 L Hct 34.9 L MCV 99.7 H MCH 31.2 MCHC 31.2 L RDW 13.2 Plt Count 220 MPV 7.9 Neut % (Auto) 69.1 Lymph % (Auto) 23.1 [place] % (Auto) 5.5 Eos % (Auto) 2.1 Baso % (Auto) 0.2 Neut # (Auto) 7.6 Lymph # (Auto) 2.5 [place] # (Auto) 0.6 Eos # (Auto) 0.2 Baso # (Auto) 0.0 Sodium 136 Potassium 4.3 Chloride 101 Carbon Dioxide 27 Anion Gap 12.3 BUN 13 D Creatinine 1.22 H D Estimated Creat Clear 58 Estimated GFR 43 L Est GFR ( Amer) 52 L D Glucose 139 H POC Glucose 139 H Calcium 8.5 Stl Aeromonas (PCR) Stl C. cayetanensis PCR Stool Rotavirus (PCR) Stl Adenov F PCR Stool Astrovirus (PCR) Stool Campylobacter PCR Stl C.difficile Tox PCR Stool Cryptosporidium PCR Stl E.coli Shiga Tox PCR Stool E coli O157 PCR Stl Enterotoxigenic E PCR Stool EPEC (PCR) Stool EAEC (PCR) Stl E. histolytica PCR Stool Giardia Lamblia PCR Stool Salmonella PCR Stool Sapovirus (PCR) Stl P. shigelloides PCR Stl Shigella/EIEC PCR St Y.enterocolitica PCR Stool Vibrio (PCR) Stl Vibrio cholerae PCR Stl Norovirus GI/GII PCR 03/23/19 03/22/19 03/22/19 04:26 20:45 16:17 WBC RBC Hgb Hct MCV MCH MCHC RDW Plt Count MPV Neut % (Auto) Lymph % (Auto) [place] % (Auto) Eos % (Auto) Baso % (Auto) Neut # (Auto) Lymph # (Auto) [place] # (Auto) Eos # (Auto) Baso # (Auto) Sodium Potassium Chloride Carbon Dioxide Anion Gap BUN Creatinine Estimated Creat Clear Estimated GFR Est GFR ( Amer) Glucose POC Glucose 134 H 171 H Calcium Stl Aeromonas (PCR) Not detected Stl C. cayetanensis PCR Not detected Stool Rotavirus (PCR) Not detected Stl Adenov F PCR Not detected Stool Astrovirus (PCR) Not detected Stool Campylobacter PCR Not detected Stl C.difficile Tox PCR Not detected Stool Cryptosporidium PCR Not detected Stl E.coli Shiga Tox PCR Not detected Stool E coli O157 PCR Not detected Stl Enterotoxigenic E PCR Not detected Stool EPEC (PCR) Not detected Stool EAEC (PCR) Not detected Stl E. histolytica PCR Not detected Stool Giardia Lamblia PCR Not detected Stool Salmonella PCR Not detected Stool Sapovirus (PCR) Not detected Stl P. shigelloides PCR Not detected Stl Shigella/EIEC PCR Not detected St Y.enterocolitica PCR Not detected Stool Vibrio (PCR) Not detected Stl Vibrio cholerae PCR Not detected Stl Norovirus GI/GII PCR Not detected 03/22/19 03/22/19 03/21/19 11:06 05:44 20:55 WBC RBC Hgb Hct MCV MCH MCHC RDW Plt Count MPV Neut % (Auto) Lymph % (Auto) [place] % (Auto) Eos % (Auto) Baso % (Auto) Neut # (Auto) Lymph # (Auto) [place] # (Auto) Eos # (Auto) Baso # (Auto) Sodium Potassium Chloride Carbon Dioxide Anion Gap BUN Creatinine Estimated Creat Clear Estimated GFR Est GFR ( Amer) Glucose POC Glucose 160 H 144 H 146 H Calcium Stl Aeromonas (PCR) Stl C. cayetanensis PCR Stool Rotavirus (PCR) Stl Adenov F 40/41 PCR Stool Astrovirus (PCR) Stool Campylobacter PCR Stl C.difficile Tox PCR Stool Cryptosporidium PCR Stl E.coli Shiga Tox PCR Stool E coli O157 PCR Stl Enterotoxigenic E PCR Stool EPEC (PCR) Stool EAEC (PCR) Stl E. histolytica PCR Stool Giardia Lamblia PCR Stool Salmonella PCR Stool Sapovirus (PCR) Stl P. shigelloides PCR Stl Shigella/EIEC PCR St Y.enterocolitica PCR Stool Vibrio (PCR) Stl Vibrio cholerae PCR Stl Norovirus GI/GII PCR Preliminary micro results at discharge 03/20/19 03:25 Blood Culture - Preliminary Blood Gram Positive Cocci 03/20/19 03:25 Blood Culture - Preliminary Blood Staphylococcus epidermidis <Errol Duff - 03/23/19 18:42> Labs from last 24 hours 03/23/19 03/23/19 03/23/19 06:46 06:09 06:09 WBC 11.1 H D RBC 3.50 L Hgb 10.9 L Hct 34.9 L MCV 99.7 H MCH 31.2 MCHC 31.2 L RDW 13.2 Plt Count 220 MPV 7.9 Neut % (Auto) 69.1 Lymph % (Auto) 23.1 [place] % (Auto) 5.5 Eos % (Auto) 2.1 Baso % (Auto) 0.2 Neut # (Auto) 7.6 Lymph # (Auto) 2.5 [place] # (Auto) 0.6 Eos # (Auto) 0.2 Baso # (Auto) 0.0 Sodium 136 Potassium 4.3 Chloride 101 Carbon Dioxide 27 Anion Gap 12.3 BUN 13 D Creatinine 1.22 H D Estimated Creat Clear 58 Estimated GFR 43 L Est GFR ( Amer) 52 L D Glucose 139 H POC Glucose 139 H Calcium 8.5 Stl Aeromonas (PCR) Stl C. cayetanensis PCR Stool Rotavirus (PCR) Stl Adenov F PCR Stool Astrovirus (PCR) Stool Campylobacter PCR Stl C.difficile Tox PCR Stool Cryptosporidium PCR Stl E.coli Shiga Tox PCR Stool E coli O157 PCR Stl Enterotoxigenic E PCR Stool EPEC (PCR) Stool EAEC (PCR) Stl E. histolytica PCR Stool Giardia Lamblia PCR Stool Salmonella PCR Stool Sapovirus (PCR) Stl P. shigelloides PCR Stl Shigella/EIEC PCR St Y.enterocolitica PCR Stool Vibrio (PCR) Stl Vibrio cholerae PCR Stl Norovirus GI/GII PCR 03/23/19 03/22/19 03/22/19 04:26 20:45 16:17 WBC RBC Hgb Hct MCV MCH MCHC RDW Plt Count MPV Neut % (Auto) Lymph % (Auto) [place] % (Auto) Eos % (Auto) Baso % (Auto) Neut # (Auto) Lymph # (Auto) [place] # (Auto) Eos # (Auto) Baso # (Auto) Sodium Potassium Chloride Carbon Dioxide Anion Gap BUN Creatinine Estimated Creat Clear Estimated GFR Est GFR ( Amer) Glucose POC Glucose 134 H 171 H Calcium Stl Aeromonas (PCR) Not detected Stl C. cayetanensis PCR Not detected Stool Rotavirus (PCR) Not detected Stl Adenov F PCR Not detected Stool Astrovirus (PCR) Not detected Stool Campylobacter PCR Not detected Stl C.difficile Tox PCR Not detected Stool Cryptosporidium PCR Not detected Stl E.coli Shiga Tox PCR Not detected Stool E coli O157 PCR Not detected Stl Enterotoxigenic E PCR Not detected Stool EPEC (PCR) Not detected Stool EAEC (PCR) Not detected Stl E. histolytica PCR Not detected Stool Giardia Lamblia PCR Not detected Stool Salmonella PCR Not detected Stool Sapovirus (PCR) Not detected Stl P. shigelloides PCR Not detected Stl Shigella/EIEC PCR Not detected St Y.enterocolitica PCR Not detected Stool Vibrio (PCR) Not detected Stl Vibrio cholerae PCR Not detected Stl Norovirus GI/GII PCR Not detected 03/22/19 03/22/19 03/21/19 11:06 05:44 20:55 WBC RBC Hgb Hct MCV MCH MCHC RDW Plt Count MPV Neut % (Auto) Lymph % (Auto) [place] % (Auto) Eos % (Auto) Baso % (Auto) Neut # (Auto) Lymph # (Auto) [place] # (Auto) Eos # (Auto) Baso # (Auto) Sodium Potassium Chloride Carbon Dioxide Anion Gap BUN Creatinine Estimated Creat Clear Estimated GFR Est GFR ( Amer) Glucose POC Glucose 160 H 144 H 146 H Calcium Stl Aeromonas (PCR) Stl C. cayetanensis PCR Stool Rotavirus (PCR) Stl Adenov F 40/41 PCR Stool Astrovirus (PCR) Stool Campylobacter PCR Stl C.difficile Tox PCR Stool Cryptosporidium PCR Stl E.coli Shiga Tox PCR Stool E coli O157 PCR Stl Enterotoxigenic E PCR Stool EPEC (PCR) Stool EAEC (PCR) Stl E. histolytica PCR Stool Giardia Lamblia PCR Stool Salmonella PCR Stool Sapovirus (PCR) Stl P. shigelloides PCR Stl Shigella/EIEC PCR St Y.enterocolitica PCR Stool Vibrio (PCR) Stl Vibrio cholerae PCR Stl Norovirus GI/GII PCR Preliminary micro results at discharge 03/20/19 03:25 Blood Culture - Preliminary Blood Gram Positive Cocci 03/20/19 03:25 Blood Culture - Preliminary Blood Staphylococcus epidermidis <Ruddy Stanley - 03/23/19 09:18> - Additional Comments Rounded with nurse practitioner. Agree with exam findings and care plan as documented. <Errol Duff - 03/23/19 18:42> Rounded with Dr. Irving all orders per Dr. Irving <Ruddy Stanley - 03/23/19 09:35> DS: Diagnosis - Discharge Diagnosis (1) HCAP (healthcare-associated pneumonia) Status: Acute (2) Acute renal failure (ARF) Status: Acute (3) Sepsis Status: Acute (4) Schizophrenia Status: Acute (5) Dystonia Status: Acute (6) Obesity (BMI 30-39.9) Status: Acute <Ruddy Stanley - 03/23/19 09:52> (1) HCAP (healthcare-associated pneumonia) Status: Acute (2) Acute renal failure (ARF) Status: Acute (3) Sepsis Status: Acute (4) Schizophrenia Status: Acute (5) Dystonia Status: Acute (6) Obesity (BMI 30-39.9) Status: Acute <Errol Duff - 03/23/19 18:42> Discharge Plan - Patient Discharge Instructions ACTIVITY: Continue current activity <Ruddy Stanley - 03/23/19 09:35> DIET: continue same diet <Ruddy Stanley 03/23/19 09:35> Patient Instructions: DI for Pneumonia -- Adult, Acute Renal Failure, DI for Hyponatremia, How to Prevent Falls, DI for Sepsis -- Adult <Errol Duff - 03/23/19 18:42> Forms: <Errol Duff - 03/23/19 18:42> - Follow up Plan Follow up with: Bryon Beaulieu MD [Primary Care Provider] - 1 week <Errol Duff - 03/23/19 18:42> Disposition: Xfer SNF <Errol Duff - 03/23/19 18:42> Home Medications: Home Medications Medication Instructions Recorded Confirmed Type Aspirin [Aspirin 81mg chewable 81 mg PO DAILY 05/18/18 03/20/19 History tab] Baclofen [Lioresal 10mg tablet] 10 mg PO BID 05/18/18 03/20/19 History Benztropine Mesylate [Cogentin 1mg 1 mg PO BID 05/18/18 03/20/19 History tablet] Divalproex Sodium [Depakote] 250 mg PO DAILY 05/18/18 03/20/19 History Lactulose [Enulose] 10 gm PO DAILYP PRN 05/18/18 03/20/19 History Lisinopril [Lisinopril 10mg Tab] 10 mg PO BID 05/18/18 03/20/19 History Triamterene/Hydrochlorothiazid 1 each PO BIDP PRN 05/18/18 03/20/19 History [Maxzide 75 mg-50 mg Tablet] risperiDONE [Risperdal 0.5mg 0.5 mg PO DAILY 05/18/18 03/20/19 History tablet] albuterol sulfate HFA 90 2 puff INHALATION Q4-6H PRN 02/12/19 03/20/19 History mcg/actuation aerosol inhaler citalopram 20 mg tablet 20 mg PO DAILY tab 02/12/19 03/20/19 History divalproex ER 500 mg 500 mg PO HS tab 02/12/19 03/20/19 History tablet,extended release 24 hr fesoterodine ER 8 mg 8 mg PO DAILY 02/12/19 03/20/19 History tablet,extended release 24 hr ondansetron HCl 4 mg tablet 4 mg PO Q6HP PRN 02/12/19 03/20/19 History Acetaminophen [Acetaminophen 325mg 650 mg PO Q6HP PRN 03/20/19 03/20/19 History tab] Furosemide [Furosemide 20mg Tab] 20 mg PO DAILY 03/20/19 03/20/19 History Guaifenesin/Dextromethorphan 10 ml PO Q4HP PRN 03/20/19 03/20/19 History [Robitussin DM 200mg/20mg 10mL Udc] Ibuprofen [Ibuprofen 400mg 400 mg PO Q4HP PRN 03/20/19 03/20/19 History Tablet] Metoprolol Succinate 50 mg PO DAILY 03/20/19 03/20/19 History Sulfamethoxazole/Trimethoprim 1 each PO BID 03/20/19 03/20/19 History [Bactrim DS tablet] cephALEXin [Cephalexin 500mg Tab] 500 mg PO TID 03/20/19 03/20/19 History levoFLOXacin [Levofloxacin 750MG 750 mg PO DAILY #7 tab 03/23/19 Rx Tablet] <Errol Duff - 03/23/19 18:42> Prescriptions/Medication Reconciliation: New levoFLOXacin [Levofloxacin 750MG Tablet] 750 mg PO DAILY #7 tab Continued ondansetron HCl 4 mg tablet 4 mg PO Q6HP PRN PRN Reason: Nausea albuterol sulfate HFA 90 mcg/actuation aerosol inhaler 2 puff INHALATION Q4- 6H PRN PRN Reason: SHORTNESS OF BREATH/WHEEZING citalopram 20 mg tablet 20 mg PO DAILY tab fesoterodine ER 8 mg tablet,extended release 24 hr 8 mg PO DAILY divalproex ER 500 mg tablet,extended release 24 hr 500 mg PO HS tab Lisinopril [Lisinopril 10mg Tab] 10 mg PO BID Aspirin [Aspirin 81mg chewable tab] 81 mg PO DAILY Triamterene/Hydrochlorothiazid [Maxzide 75 mg-50 mg Tablet] 1 each PO BIDP PRN PRN Reason: diuretic Lactulose [Enulose] 10 gm PO DAILYP PRN PRN Reason: liver Benztropine Mesylate [Cogentin 1mg tablet] 1 mg PO BID Baclofen [Lioresal 10mg tablet] 10 mg PO BID Furosemide [Furosemide 20mg Tab] 20 mg PO DAILY Metoprolol Succinate 50 mg PO DAILY Guaifenesin/Dextromethorphan [Robitussin DM 200mg/20mg 10mL Udc] 10 ml PO Q4HP PRN PRN Reason: COUGH/CONGESTION risperiDONE [Risperdal 0.5mg tablet] 0.5 mg PO DAILY Divalproex Sodium [Depakote] 250 mg PO DAILY cephALEXin [Cephalexin 500mg Tab] 500 mg PO TID Sulfamethoxazole/Trimethoprim [Bactrim DS tablet] 1 each PO BID Ibuprofen [Ibuprofen 400mg Tablet] 400 mg PO Q4HP PRN PRN Reason: PAIN Acetaminophen [Acetaminophen 325mg tab] 650 mg PO Q6HP PRN PRN Reason: LEG PAIN <Errol Duff - 03/23/19 18:42> - Additional Information Additional Information: We will discharge patient to [facility] today, continue current medications. Will continue levofloxacin 750 mg QD by mouth for 7 days <Ruddy Stanley - 03/23/19 09:54>
== END 2019-03-23 12:09 | DRG 871 ==
LOC: 2ND 03:16 → ER 03:16 → 2ND 05:52
PROVIDERS: ADMIT Emergency Medicine; ATTEND Emergency Medicine
CPT/HCPCS: 36415; 70371; 70450; 71010; 71045; 72125; 72170; 80048; 80053; 80164; 81001; 82140; 82550; 82803; 82962; 83036; 83605; 84484; 85007; 85025; 87040; 87077; 87186; 87507; 92611; 93005; 93306; 94640; 94761; 96365; 96367; 96375; 97162; 97166; 99285; J1956; J2405; J2543

== ENCOUNTER 2019-04-02 21:17 | Inpatient (IN) ==
--- NOTE | 2019-04-02 21:44 | Emergency Department Note ---
ED Disposition Clinical Impression: Febrile illness, acute, Obesity (BMI 30-39.9) Sepsis Qualifiers: Sepsis type: sepsis due to unspecified organism Qualified Code(s): A41.9 - Sepsis, unspecified organism Schizophrenia Qualifiers: Schizophrenia type: unspecified Qualified Code(s): F20.9 - Schizophrenia, unspecified Disposition: Admitted as Observation Condition on Discharge: Fair - Critical Care Critical Care Time: No Attestation: On 04/02/19, the high probability of a clinically significant, sudden or life threatening deterioration of the following system(s) required my full and direct attention, intervention and personal management. The time I documented below is in addition to time spent performing reported procedures but includes the following listed in this critical care notation. Medical Decision Making - Medical Records Medical records reviewed: Yes: I reviewed the patient's medical records. - Otis Inquiry Pt receiving controlled substance: No Vital Signs: 04/02/19 21:17 04/02/19 22:04 Temperature 102.4 F H Temperature Source Rectal Pulse Rate [Right] 111 H 107 H Respiratory Rate 20 22 Blood Pressure [Right Arm] 134/60 132/62 Blood Pressure Mean [Right Arm] 84 85 02 Sat by Pulse Oximetry 97 100 Oxygen Delivery Method Nasal Cannula Nasal Cannula Oxygen Flow Rate (LPM) 2 - Lab Data Lab results reviewed: Yes: I reviewed the patient's lab results. Lab Results 04/02/19 21:30: WBC 13.3 H, RBC 3.74 L, Hgb 11.1 L, Hct 35.0 L, MCV 93.5, MCH 29.7, MCHC 31.7 L, RDW 13.0, Plt Count 282, MPV 7.6, Neut % (Auto) 80.3 H, Lymph % (Auto) 13.8, [place] % (Auto) 5.6, Eos % (Auto) 0.3, Baso % (Auto) 0.1, Neut # (Auto) 10.7 H, Lymph # (Auto) 1.8, [place] # (Auto) 0.7, Eos # (Auto) 0.0, Baso # (Auto) 0.0, ESR 64 H 04/02/19 21:30: Sodium 131 L, Potassium 3.8, Chloride 96 L, Carbon Dioxide 29, Anion Gap 9.8, BUN 23 H, Creatinine 2.02 H, Estimated Creat Clear 33, Estimated GFR 24 L, Est GFR ( Amer) 29 L, Glucose 162 H, Calcium 8.9, Total Bilirubin 0.2, AST 18, ALT 25, Alkaline Phosphatase 55, C-Reactive Protein 4.2 H , Total Protein 8.1, Albumin 2.7 L, Globulin 5.4 H, Albumin/Globulin Ratio 0.5 L 04/02/19 21:30: Lactate 2.5 H 04/02/19 21:46: Urine Color Dk yellow, Urine Appearance Clear, Urine pH 5.5, Ur Specific [place] >= 1.030, Urine Protein Trace, Urine Glucose (UA) Negative, Urine Ketones Trace, Urine Blood Negative, Urine Nitrate Negative, Urine Bilirubin Negative, Urine Urobilinogen 0.2, Ur Leukocyte Esterase Negative, Ur Squamous Epith Cells 10-20, Ur Renal Epithelial Cell 5-10 04/02/19 22:25: Specimen Source Right radial, O2 % 3l, ABG pH 7.45, ABG pCO2 36.0, ABG pO2 79.5 L, ABG HCO3 24.7, ABG Total CO2 25.8, ABG O2 Saturation 96, ABG Base Excess 0.8, Emmett Test Acceptable Result diagrams: 04/02/19 21:30 04/02/19 21:30 Orders (Tests/Meds): ED MEDICATIONS Generic Name Dose Route Start Last Admin Trade Name Anurag PRN Reason Stop Dose Admin Sodium Chloride 1,000 mls @ 999 mls/hr 04/02/19 21:30 04/02/19 21:56 Sod Chlor 0.9% 1000ml Bag IV 04/02/19 22:30 999 mls/hr .Q1H1M MICHAEL Administration Vancomycin HCl 1,500 mg/ 250 mls @ 125 mls/hr 04/02/19 22:30 04/02/19 23:54 Sodium Chloride IV 04/16/19 22:29 Not Given Q24H MICHAEL Piperacillin Sod/Tazobactam 100 mls @ 200 mls/hr 04/02/19 22:30 04/02/19 22:24 Sod 4.5 gm/ Sodium Chloride IV 04/16/19 22:29 200 mls/hr Q6H MICHAEL Administration Protocol Vancomycin HCl 1,750 mg/ 250 mls @ 125 mls/hr 04/02/19 22:21 04/02/19 23:30 Sodium Chloride IV 04/03/19 00:20 125 mls/hr ONCE ONE Administration Discontinued Medications Generic Name Dose Route Start Last Admin Trade Name Anurag PRN Reason Stop Dose Admin Acetaminophen 650 mg 04/02/19 21:31 04/02/19 21:56 Acetaminophen 650mg Suppository RC 04/02/19 21:32 650 mg ONCE ONE Administration ORDERS Category Date Time Status XR chest portable Stat Exams 04/02/19 21:24 Taken Blood Culture Stat Micro 04/02/19 21:30 Received ABG [Arterial Blood Gas] Stat RT 04/02/19 21:24 Ordered 12-lead EKG Request [ECG Request by /Caitlin] Stat Y 04/02/19 22:05 Ordered - Radiology Data #1 Image(s): Chest Image Reviewed: Yes I reviewed the patient's radiology image Preliminary Findings: Abnormal (prob old) - ECG Data Tracing #1 Arrhythmias present: sinus tach Ischemic changes: non-specific ST-T wave changes Fever HPI - General Chief Complaint: Fever Stated Complaint: Fever, "doesnt feel good" Time Seen by Provider: 04/02/19 21:30 Mode of Arrival: EMS Source of Information: Patient, EMS, Medical Record Limitations: No Limitations Description of Symptoms (Recalled from ER Triage Doc. by RN): Per ems pt is brought in for fever and weakness from the long-term, pt states "I just dont feel good" - History of Present Illness HPI Narrative: [facility] from [facility] for not feeling well -pt has fever - no diarrhea or cough and no rash or abd pain MD complaint: fever Onset (ago): day(s) Associated symptoms: denies other symptoms - Related Data Home Medications Medication Instructions Recorded Confirmed Aspirin [Aspirin 81mg chewable 81 mg PO DAILY 05/18/18 04/02/19 tab] Baclofen [Lioresal 10mg tablet] 10 mg PO BID 05/18/18 04/02/19 Benztropine Mesylate [Cogentin 1mg 1 mg PO BID 05/18/18 04/02/19 tablet] Divalproex Sodium [Depakote] 250 mg PO DAILY 05/18/18 04/02/19 Lisinopril [Lisinopril 10mg Tab] 10 mg PO BID 05/18/18 04/02/19 risperiDONE [Risperdal 0.5mg 0.5 mg PO DAILY 05/18/18 04/02/19 tablet] albuterol sulfate HFA 90 2 puff INHALATION Q4-6H PRN 02/12/19 04/02/19 mcg/actuation aerosol inhaler citalopram 20 mg tablet 20 mg PO DAILY tab 02/12/19 04/02/19 divalproex ER 500 mg 500 mg PO HS tab 02/12/19 04/02/19 tablet,extended release 24 hr fesoterodine ER 8 mg 8 mg PO DAILY 02/12/19 04/02/19 tablet,extended release 24 hr ondansetron HCl 4 mg tablet 4 mg PO Q6HP PRN 02/12/19 04/02/19 Acetaminophen [Acetaminophen 325mg 650 mg PO Q6HP PRN 03/20/19 04/02/19 tab] Furosemide [Furosemide 20mg Tab] 20 mg PO DAILY 03/20/19 04/02/19 Guaifenesin/Dextromethorphan 10 ml PO Q4HP PRN 03/20/19 04/02/19 [Robitussin DM 200mg/20mg 10mL Udc] Ibuprofen [Ibuprofen 400mg 400 mg PO Q4HP PRN 03/20/19 04/02/19 Tablet] Metoprolol Succinate 50 mg PO DAILY 03/20/19 04/02/19 Allergies Allergy/AdvReac Type Severity Reaction Status Date / Time No Known Allergies Allergy Verified 03/20/19 03:28 [facility] History - Hepatitis A Screen Drug use history?: No High risk sexual behaviors?: No History of sexually transmitted infection?: No Currently employed?: No Childcare worker?: No Do you have indoor plumbing?: Yes Do you have electricity?: Yes Attestation statement:: This patient has been screened for Hepatitis A risk factors. I have reviewed the patient's past medical history: Yes Medical History: Reports:: Diabetes Mellitus Type 2 - Social History Smoking Status: Unknown if ever smoked Alcohol Intake: never Occupational Status: retired Housing: assisted living facility Family Hx:: Unable to obtain ROS Obtained: Yes All systems reviewed & no additional complaints - Constitutional Constitutional: Reports as per HPI, Reports fever(s), Reports weakness - Eyes Eyes: Denies change in vision - ENT Ears, Nose, Mouth, and Throat: Denies facial pain, Denies sore throat - Cardiovascular Cardiovascular: Denies chest pain - Respiratory Respiratory: No cough - Gastrointestinal Gastrointestingal: Denies: abdominal pain, diarrhea, vomiting - Genitourinary Female Genitourinary: Denies hematuria - Musculoskeletal Musculoskeletal: Denies joint pain - Integumentary/Breasts Skin/Breast: Denies rash - Neurologic Neurologic: Denies focal weakness, Denies seizure-like activity Physical Exam - General General appearance: alert, obese - Head Head exam: normocephalic - Eye Eye exam: Present: PERRL, EOMI. Absent: scleral icterus - ENT ENT exam: Present: mucous membranes dry, other (has tardive dyskinesi) - Neck Neck exam: Present: trachea midline. Absent: meningismus - Respiratory Respiratory exam: Present: other (dec bs bilat ). Absent: respiratory distress - Cardiovascular Cardiovascular exam: Present: regular rate, systolic murmur. Absent: rubs - Abdominal Exam Abdominal exam: Present: soft. Absent: tenderness, guarding, rebound - Extremities Exam Extremities exam: Absent: calf tenderness - Neurological Exam Neurological exam: Present: alert, CN II-XII intact - Psychiatric Psychiatric exam: Present: normal affect - Skin Skin exam: Absent: rash
[2019-04-02 21:46] LABS: Basophils % 0.1 % (0.1-2.0); Eosinophils % 0.3 % (0.1-12.0); Hemoglobin 11.1 g/dL (12.2-16.2); Lymphocytes # 1.8 K/mm3 (0.7-4.5); Lymphocytes % 13.8 % (10-50); Mean Corpuscular HGB Conc 31.7 g/dL (31.8-35.4); Mean Corpuscular Volume 93.5 fl (81-99); Mean Platelet Volume 7.6 fl (7.4-10.4); Monocytes # 0.7 K/mm3 (0.1-1.0); Monocytes % 5.6 % (1.7-9.3); Neutrophils # 10.7 K/mm3 (1.8-7.8); Neutrophils % 80.3 % (37.0-80.0); Platelet Count 282 K/mm3 (142-424); Red Blood Count 3.74 M/mm3 (4.20-5.40); White Blood Count 13.3 K/mm3 (4.8-10.8)
[2019-04-02 21:55] LABS: Microscopic, Urine URINE MICROSCOPIC (MICROSCOPIC)
[2019-04-02 21:58] LABS: Appearance,Urine CLEAR (Clear); Bilirubin,Urine Negative (Negative); Blood, Urine Negative (Negative); Color,Urine DK YELLOW (Yellow); Glucose,Urine (UA) Negative (Negative); Ketones,Urine TRACE (Negative); Leukocyte Esterase,Urine Negative (Negative); PH,Urine 5.5 (5.0-8.5); Protein,Urine TRACE (Negative); Specific Gravity, Urine >= 1.030 (1.005-1.030); Urobilinogen,Urine 0.2 EU/dl (0.2)
[2019-04-02 22:02] LABS: Albumin Level 2.7 gm/dL (3.4-5.0); Albumin/Globulin Ratio 0.5 (1.1-1.8); Anion Gap 9.8 mEq/L (5-15); Bilirubin,Total 0.2 mg/dL (0.2-1.0); C-Reactive Protein 4.2 mg/L (0.0-0.9); Calcium 8.9 mg/dL (8.5-10.1); Globulin 5.4 gm/dl (1.3-3.2); Total Protein,Serum 8.1 gm/dL (6.4-8.2)
[2019-04-02 22:14] LABS: Erythrocyte Sedimentation Rate 64 mm/hr (0-30)
[2019-04-02 22:29] LABS: ABG Base Excess 0.8 mmol/L (-2.4-2.3); ABG HCO3 24.7 mmhg (22.0-26.0); ABG Oxygen Saturation 96 % (90-100); ABG PH 7.45 mmol/L (7.35-7.45); ABG PO2 79.5 mmhg (80-100); ABG TCO2 25.8 mmhg (23-27)
[2019-04-02 22:31] LABS: Allen's Test Acceptable; Oxygen 3L %
[2019-04-03 05:49] LABS: Basophils % 0.2 % (0.1-2.0); Eosinophils % 0.2 % (0.1-12.0); Hematocrit 30.7 % (37.0-47.0); Hemoglobin 9.7 g/dL (12.2-16.2); Lymphocytes # 2.6 K/mm3 (0.7-4.5); Lymphocytes % 18.5 % (10-50); Mean Corpuscular HGB Conc 31.5 g/dL (31.8-35.4); Mean Corpuscular Volume 94.7 fl (81-99); Mean Platelet Volume 7.4 fl (7.4-10.4); Monocytes # 0.6 K/mm3 (0.1-1.0); Monocytes % 4.5 % (1.7-9.3); Neutrophils # 10.7 K/mm3 (1.8-7.8); Neutrophils % 76.6 % (37.0-80.0); Platelet Count 235 K/mm3 (142-424); Red Blood Count 3.24 M/mm3 (4.20-5.40); White Blood Count 13.9 K/mm3 (4.8-10.8)
[2019-04-03 05:56] LABS: Anion Gap 8.7 mEq/L (5-15); Calcium 8.1 mg/dL (8.5-10.1)
--- NOTE | 2019-04-03 08:23 | History & Physical Report ---
*Admission Date: 04/02/19 *Chief complaint: fever *History of present illness: this pt who had [facility] admit about 2 weeks ago for prob pneummonia - had been doing ok at [facility] and dev fever and did not feel well and was eval in the ed with elevated temp and had sepsis criteria and was admitted for eval and ivf and abx - pt denied cough or abd pain - recent admit and d/c summary was reviewed [facility] History I have reviewed the patient's past medical history: Yes Medical History: Reports:: Diabetes Mellitus Type 2 *Have you ever received a pneumonia vaccine?: No (unable to assess) *Have you received a flu vaccine this season?: No (unable to assess) - *Social History Smoking Status: Never smoker Alcohol Intake: never *Occupational Status:: retired Housing: assisted living facility *Travel in the last 8 weeks: None Family Hx:: Unable to obtain Review of Systems - Review of Systems Review of systems:: pertinent systems reviewed and negative unless documented below - Constitutional Reports fever(s), Reports weakness - Eyes Denies change in vision - ENT Denies sore throat - *Cardiovascular Denies chest pain - *Respiratory Denies cough, Denies shortness of breath - *Gastrointestinal Denies abdominal pain, Denies vomiting - *Genitourinary Denies blood in urine - *Musculoskeletal Denies joint swelling - Integumentary/Breasts Denies rash - *Neurologic Reports weakness, Denies localized weakness, Denies seizure-like activity Meds Home Medications Medication Instructions Recorded Confirmed Type Aspirin [Aspirin 81mg chewable 81 mg PO DAILY 05/18/18 04/02/19 History tab] Baclofen [Lioresal 10mg tablet] 10 mg PO BID 05/18/18 04/02/19 History Benztropine Mesylate [Cogentin 1mg 1 mg PO BID 05/18/18 04/02/19 History tablet] Divalproex Sodium [Depakote] 250 mg PO DAILY 05/18/18 04/02/19 History Lisinopril [Lisinopril 10mg Tab] 10 mg PO BID 05/18/18 04/02/19 History risperiDONE [Risperdal 0.5mg 0.5 mg PO DAILY 05/18/18 04/02/19 History tablet] albuterol sulfate HFA 90 2 puff INHALATION Q4-6H PRN 05/31/19 07/20/19 History mcg/actuation aerosol inhaler citalopram 20 mg tablet 20 mg PO DAILY tab 02/12/19 04/02/19 History divalproex ER 500 mg 500 mg PO HS tab 02/12/19 04/02/19 History tablet,extended release 24 hr fesoterodine ER 8 mg 8 mg PO DAILY 02/12/19 04/03/19 History tablet,extended release 24 hr ondansetron HCl 4 mg tablet 4 mg PO Q6HP PRN 02/12/19 04/02/19 History Acetaminophen [Acetaminophen 325mg 650 mg PO Q6HP PRN 03/20/19 04/03/19 History tab] Furosemide [Furosemide 20mg Tab] 20 mg PO DAILY 03/20/19 04/02/19 History Guaifenesin/Dextromethorphan 10 ml PO Q4HP PRN 03/20/19 04/03/19 History [Robitussin DM 200mg/20mg 10mL Udc] Ibuprofen [Ibuprofen 400mg 400 mg PO Q4HP PRN 03/20/19 04/03/19 History Tablet] Metoprolol Succinate 50 mg PO DAILY 03/20/19 04/02/19 History Lactulose [Kristalose] 10 gm PO DAILY PRN 04/03/19 04/03/19 History Triamterene/Hydrochlorothiazid 1 each PO BID PRN 04/03/19 04/03/19 History [Maxzide 75 mg-50 mg Tablet] Allergies Allergy/AdvReac Type Severity Reaction Status Date / Time No Known Allergies Allergy Verified 03/20/19 03:28 Exam Vital signs and Labs for Last 24 Hours: Temp Pulse Resp BP Pulse Ox 97.8 F 95 H 19 118/51 L 97 04/03/19 08:00 04/03/19 08:00 04/03/19 08:00 04/03/19 08:00 04/03/19 08:00 Laboratory Results - last 24 hr 04/02/19 21:30: WBC 13.3 H, RBC 3.74 L, Hgb 11.1 L, Hct 35.0 L, MCV 93.5, MCH 29.7, MCHC 31.7 L, RDW 13.0, Plt Count 282, MPV 7.6, Neut % (Auto) 80.3 H, Lymph % (Auto) 13.8, [place] % (Auto) 5.6, Eos % (Auto) 0.3, Baso % (Auto) 0.1, Neut # (Auto) 10.7 H, Lymph # (Auto) 1.8, [place] # (Auto) 0.7, Eos # (Auto) 0.0, Baso # (Auto) 0.0, ESR 64 H 04/02/19 21:30: Sodium 131 L, Potassium 3.8, Chloride 96 L, Carbon Dioxide 29, Anion Gap 9.8, BUN 23 H, Creatinine 2.02 H, Estimated Creat Clear 33, Estimated GFR 24 L, Est GFR ( Amer) 29 L, Glucose 162 H, Calcium 8.9, Total Bilirubin 0.2, AST 18, ALT 25, Alkaline Phosphatase 55, C-Reactive Protein 4.2 H , Total Protein 8.1, Albumin 2.7 L, Globulin 5.4 H, Albumin/Globulin Ratio 0.5 L 04/02/19 21:30: Lactate 2.5 H 04/02/19 21:46: Urine Color Dk yellow, Urine Appearance Clear, Urine pH 5.5, Ur Specific [place] >= 1.030, Urine Protein Trace, Urine Glucose (UA) Negative, Urine Ketones Trace, Urine Blood Negative, Urine Nitrate Negative, Urine Bilirubin Negative, Urine Urobilinogen 0.2, Ur Leukocyte Esterase Negative, Ur Squamous Epith Cells 10-20, Ur Renal Epithelial Cell 5-10 04/02/19 22:25: Specimen Source Right radial, O2 % 3l, ABG pH 7.45, ABG pCO2 36.0, ABG pO2 79.5 L, ABG HCO3 24.7, ABG Total CO2 25.8, ABG O2 Saturation 96, ABG Base Excess 0.8, Emmett Test Acceptable 04/03/19 01:10: Lactate 2.0 04/03/19 05:35: WBC 13.9 H, RBC 3.24 L, Hgb 9.7 L D, Hct 30.7 L, MCV 94.7, MCH 29.8, MCHC 31.5 L, RDW 13.0, Plt Count 235, MPV 7.4, Neut % (Auto) 76.6, Lymph % (Auto) 18.5, [place] % (Auto) 4.5, Eos % (Auto) 0.2, Baso % (Auto) 0.2, Neut # (Auto) 10.7 H, Lymph # (Auto) 2.6, [place] # (Auto) 0.6, Eos # (Auto) 0.0, Baso # (Auto) 0.0 04/03/19 05:35: Sodium 134 L, Potassium 3.7, Chloride 101, Carbon Dioxide 28, Anion Gap 8.7, BUN 22 H, Creatinine 1.79 H, Estimated Creat Clear 38, Estimated GFR 27 L, Est GFR ( Amer) 33 L, Glucose 125 H D, Calcium 8.1 L I & O for Last 24 hours: Intake & Output 03/31/19 04/01/19 04/02/19 04/03/19 11:59 11:59 11:59 11:59 Intake Total 2179 / 2179 Output Total 350 / 350 Balance 1829 / 1829 Weight 202 lb 0.012 oz - Constitutional no acute distress, obese - *Routine HEENT Exam Head: Present: normocephalic Eye: Present: EOMI, PERRL, conjunctival icterus ENT: Present: mucous membranes dry Comments: enlarged tongue with tardive dyskinesia - *Routine Neck Exam Absent: JVD - *Routine Respiratory Exam Present: decreased breath sounds - *Routine Cardiovascular Exam Present: RRR, murmur - *Routine Abdominal Exam Present: soft - *Routine Extremities Exam Absent: calf tenderness - *Routine Skin Exam Present: intact - *Routine Neurological Exam Present: alert, CN II-XII intact - Routine Psychiatric Exam Comments: at baseline Assessment and Plan (1) Febrile illness, acute Current visit: Yes Status: Acute Category: Medical Code(s): R50.9 - Fever, unspecified (2) Schizophrenia Current visit: Yes Status: Acute Qualifiers: Schizophrenia type: unspecified Qualified Code(s): F20.9 - Schizophrenia, unspecified Category: Medical Code(s): F20.9 - Schizophrenia, unspecified (3) Dystonia Current visit: No Status: Acute Category: Medical Code(s): G24.9 - Dystonia, unspecified (4) Obesity (BMI 30-39.9) Current visit: Yes Status: Acute Category: Medical Code(s): E66.9 - Obesity, unspecified (5) Sepsis Current visit: Yes Status: Acute Qualifiers: Sepsis type: sepsis due to unspecified organism Qualified Code(s): A41.9 - Sepsis, unspecified organism Category: Medical Code(s): A41.9 - Sepsis, unspecified organism (6) Anemia Current visit: Yes Status: Acute Qualifiers: Anemia type: unspecified type Qualified Code(s): D64.9 - Anemia, unspecified Category: Medical Code(s): D64.9 - Anemia, unspecified (7) Acute renal failure (ARF) Current visit: No Status: Acute Qualifiers: Acute renal failure type: unspecified Qualified Code(s): N17.9 - Acute kidney failure, unspecified Category: Medical Code(s): N17.9 - Acute kidney failure, unspecified
--- NOTE | 2019-04-03 08:49 | Pharmacy Consult Notes ---
- Pharmacy Consult Date: 04/03/19 Time: 08:48 Referring provider: DR. PAIGE Reason for Consult:: VANCOMYCIN DOSING Allergies and ADEs:: Allergies Allergy/AdvReac Type Severity Reaction Status Date / Time No Known Allergies Allergy Verified 03/20/19 03:28 Home Medications:: Home Medications Medication Instructions Recorded Confirmed Type Aspirin [Aspirin 81mg chewable 81 mg PO DAILY 05/18/18 04/02/19 History tab] Baclofen [Lioresal 10mg tablet] 10 mg PO BID 05/18/18 04/02/19 History Benztropine Mesylate [Cogentin 1mg 1 mg PO BID 05/18/18 04/02/19 History tablet] Divalproex Sodium [Depakote] 250 mg PO DAILY 05/18/18 04/02/19 History Lisinopril [Lisinopril 10mg Tab] 10 mg PO BID 05/18/18 04/02/19 History risperiDONE [Risperdal 0.5mg 0.5 mg PO DAILY 05/18/18 04/02/19 History tablet] albuterol sulfate HFA 90 2 puff INHALATION Q4-6H PRN 02/12/19 04/03/19 History mcg/actuation aerosol inhaler citalopram 20 mg tablet 20 mg PO DAILY tab 02/12/19 04/02/19 History divalproex ER 500 mg 500 mg PO HS tab 02/12/19 04/02/19 History tablet,extended release 24 hr fesoterodine ER 8 mg 8 mg PO DAILY 02/12/19 04/03/19 History tablet,extended release 24 hr ondansetron HCl 4 mg tablet 4 mg PO Q6HP PRN 02/12/19 04/02/19 History Acetaminophen [Acetaminophen 325mg 650 mg PO Q6HP PRN 03/20/19 04/03/19 History tab] Furosemide [Furosemide 20mg Tab] 20 mg PO DAILY 03/20/19 04/02/19 History Guaifenesin/Dextromethorphan 10 ml PO Q4HP PRN 03/20/19 04/03/19 History [Robitussin DM 200mg/20mg 10mL Udc] Ibuprofen [Ibuprofen 400mg 400 mg PO Q4HP PRN 03/20/19 04/03/19 History Tablet] Metoprolol Succinate 50 mg PO DAILY 03/20/19 04/02/19 History Lactulose [Kristalose] 10 gm PO DAILY PRN 04/03/19 04/03/19 History Triamterene/Hydrochlorothiazid 1 each PO BID PRN 04/03/19 04/03/19 History [Maxzide 75 mg-50 mg Tablet] Height: 1.52 m Weight: 91.626 kg Laboratory Results:: Laboratory Results - last 24 hr 04/02/19 21:30: WBC 13.3 H, RBC 3.74 L, Hgb 11.1 L, Hct 35.0 L, MCV 93.5, MCH 29.7, MCHC 31.7 L, RDW 13.0, Plt Count 282, MPV 7.6, Neut % (Auto) 80.3 H, Lymph % (Auto) 13.8, [place] % (Auto) 5.6, Eos % (Auto) 0.3, Baso % (Auto) 0.1, Neut # (Auto) 10.7 H, Lymph # (Auto) 1.8, [place] # (Auto) 0.7, Eos # (Auto) 0.0, Baso # (Auto) 0.0, ESR 64 H 04/02/19 21:30: Sodium 131 L, Potassium 3.8, Chloride 96 L, Carbon Dioxide 29, Anion Gap 9.8, BUN 23 H, Creatinine 2.02 H, Estimated Creat Clear 33, Estimated GFR 24 L, Est GFR ( Amer) 29 L, Glucose 162 H, Calcium 8.9, Total Bilirubin 0.2, AST 18, ALT 25, Alkaline Phosphatase 55, C-Reactive Protein 4.2 H , Total Protein 8.1, Albumin 2.7 L, Globulin 5.4 H, Albumin/Globulin Ratio 0.5 L 04/02/19 21:30: Lactate 2.5 H 04/02/19 21:46: Urine Color Dk yellow, Urine Appearance Clear, Urine pH 5.5, Ur Specific [place] >= 1.030, Urine Protein Trace, Urine Glucose (UA) Negative, Urine Ketones Trace, Urine Blood Negative, Urine Nitrate Negative, Urine Bilirubin Negative, Urine Urobilinogen 0.2, Ur Leukocyte Esterase Negative, Ur Squamous Epith Cells 10-20, Ur Renal Epithelial Cell 5-10 04/02/19 22:25: Specimen Source Right radial, O2 % 3l, ABG pH 7.45, ABG pCO2 36.0, ABG pO2 79.5 L, ABG HCO3 24.7, ABG Total CO2 25.8, ABG O2 Saturation 96, ABG Base Excess 0.8, Emmett Test Acceptable 04/03/19 01:10: Lactate 2.0 04/03/19 05:35: WBC 13.9 H, RBC 3.24 L, Hgb 9.7 L D, Hct 30.7 L, MCV 94.7, MCH 29.8, MCHC 31.5 L, RDW 13.0, Plt Count 235, MPV 7.4, Neut % (Auto) 76.6, Lymph % (Auto) 18.5, [place] % (Auto) 4.5, Eos % (Auto) 0.2, Baso % (Auto) 0.2, Neut # (Auto) 10.7 H, Lymph # (Auto) 2.6, [place] # (Auto) 0.6, Eos # (Auto) 0.0, Baso # (Auto) 0.0 04/03/19 05:35: Sodium 134 L, Potassium 3.7, Chloride 101, Carbon Dioxide 28, Anion Gap 8.7, BUN 22 H, Creatinine 1.79 H, Estimated Creat Clear 38, Estimated GFR 27 L, Est GFR ( Amer) 33 L, Glucose 125 H D, Calcium 8.1 L Medical History: Reports:: Diabetes Mellitus Type 2 Assessment and Plan - Assessment and plan all Dx Assessment and Plan for all problems:: BASED ON PATIENT FACTORS, RECOMMEND VANCOMYCIN 1750 MG IV ONCE, FOLLOWED BY VANCOMYCIN 1500 MG IV Q36H. PHARMACY WILL FOLLOW DAILY AND ADJUST APPROPRIA TE.
--- NOTE | 2019-04-03 10:33 | Pharmacy Consult Notes ---
[facility] Pharmacy VTE Monitoring - Patient Demographics Admission date: 04/03/19 Report Date: 04/03/19 Time: 10:32 Allergies/Adverse Reactions: Patient Allergies No Known Allergies Allergy (Verified 03/20/19 03:28) Height: 1.52 m Weight: 91.626 kg Patient Problems: Current Active Problems (Updated 04/02/19 @ 22:21 by Bryon Beaulieu MD) Sepsis (Acute) Schizophrenia (Acute) Obesity (BMI 30-39.9) (Acute) Febrile illness, acute (Acute) - VTE Risk Labs: VTE Related Lab Results Hgb 9.7 g/dL (12.2-16.2) L D 04/03/19 05:35 Hct 30.7 % (37.0-47.0) L 04/03/19 05:35 Plt Count 235 K/mm3 (142-424) 04/03/19 05:35 BUN 22 mg/dL (7-18) H 04/03/19 05:35 Creatinine 1.79 mg/dL (0.55-1.02) H 04/03/19 05:35 Estimated Creat Clear 38 mL/min (50-200) 04/03/19 05:35 - Prophylaxis VTE Prophylaxis Ordered?: Yes Types of VTE Prophylaxis: TEDS Knee High Location of Applied Device: Bilateral Lower Extremeties
--- NOTE | 2019-04-04 08:46 | Progress Note ---
Internal Medicine - PN: Subj *Date: 04/04/19 *Time: 08:40 Interval history: doing better - has c diff and will use po abx trial Exam Vital signs and Labs for Last 24 Hours: Temp Pulse Resp BP Pulse Ox 98.7 F 67 18 116/62 95 04/04/19 08:00 04/04/19 08:00 04/04/19 08:00 04/04/19 08:00 04/04/19 08:00 Laboratory Results - last 24 hr 04/03/19 09:10: Stl Aeromonas (PCR) Not detected, Stl C. cayetanensis PCR Not detected, Stool Rotavirus (PCR) Not detected, Stl Adenov F 40/41 PCR Not detected, Stool Astrovirus (PCR) Not detected, Stool Campylobacter PCR Not detected, Stl C.difficile Tox PCR Detected A, Stool Cryptosporidium PCR Not detected, Stl E.coli Shiga Tox PCR Not detected, Stool E coli O157 PCR Not detected, Stl Enterotoxigenic E PCR Not detected, Stool EPEC (PCR) Not detected, Stool EAEC (PCR) Not detected, Stl E. histolytica PCR Not detected, Stool Giardia Lamblia PCR Not detected, Stool Salmonella PCR Not detected, Stool Sapovirus (PCR) Not detected, Stl P. shigelloides PCR Not detected, Stl Shigella/EIEC PCR Not detected, St Y.enterocolitica PCR Not detected, Stool Vibrio (PCR) Not detected, Stl Vibrio cholerae PCR Not detected, Stl Norovirus GI/GII PCR Not detected 04/03/19 12:25: POC Glucose 146 H 04/03/19 17:08: POC Glucose 104 04/03/19 21:44: POC Glucose 93 04/04/19 05:44: POC Glucose 92 I & O for Last 24 hours: Intake & Output 04/01/19 04/02/19 04/03/19 04/04/19 11:59 11:59 11:59 11:59 Intake Total 2179 / 2179 2641 / 2641 Output Total 350 / 350 1300 / 1300 Balance 1829 / 1829 1341 / 1341 Weight 202 lb 0.012 oz 202 lb 0.012 oz Microbiology Reports for the Last 24 Hours: Microbiology 04/02/19 21:46 Urine,Catheterized Urine Culture - Preliminary NO GROWTH AFTER 24 HOURS - Constitutional no acute distress, obese - *Routine HEENT Exam Head: Present: normocephalic Eye: Present: EOMI, PERRL ENT: Present: mucous membranes dry - *Routine Neck Exam Present: supple - *Routine Respiratory Exam Present: decreased breath sounds - *Routine Cardiovascular Exam Present: RRR, murmur - *Routine Abdominal Exam Present: soft - *Routine Extremities Exam Present: edema - *Routine Skin Exam Present: intact - *Routine Neurological Exam Present: alert, CN II-XII intact - Routine Psychiatric Exam Present: normal affect Assessment and Plan (1) Febrile illness, acute Current visit: Yes Status: Acute Category: Medical Code(s): R50.9 - Fever, unspecified (2) Schizophrenia Current visit: Yes Status: Acute Qualifiers: Schizophrenia type: unspecified Qualified Code(s): F20.9 - Schizophrenia, unspecified Category: Medical Code(s): F20.9 - Schizophrenia, unspecified (3) Dystonia Current visit: No Status: Acute Category: Medical Code(s): G24.9 - Dystonia, unspecified (4) Obesity (BMI 30-39.9) Current visit: Yes Status: Acute Category: Medical Code(s): E66.9 - Obesity, unspecified (5) Sepsis Current visit: Yes Status: Acute Qualifiers: Sepsis type: sepsis due to unspecified organism Qualified Code(s): A41.9 - Sepsis, unspecified organism Category: Medical Code(s): A41.9 - Sepsis, unspecified organism (6) Anemia Current visit: Yes Status: Acute Qualifiers: Anemia type: unspecified type Qualified Code(s): D64.9 - Anemia, unspecified Category: Medical Code(s): D64.9 - Anemia, unspecified (7) Acute renal failure (ARF) Current visit: No Status: Acute Qualifiers: Acute renal failure type: unspecified Qualified Code(s): N17.9 - Acute kidney failure, unspecified Category: Medical Code(s): N17.9 - Acute kidney failure, unspecified (8) C. difficile enteritis Current visit: Yes Status: Acute Category: Medical Code(s): A04.72 - Enterocolitis due to Clostridium difficile, not specified as recurrent
[2019-04-04 09:29] LABS: Basophils % 0.3 % (0.1-2.0); Eosinophils # 0.1 K/mm3 (0.0-0.4); Eosinophils % 1.5 % (0.1-12.0); Hematocrit 29.8 % (37.0-47.0); Hemoglobin 9.2 g/dL (12.2-16.2); Lymphocytes # 3.1 K/mm3 (0.7-4.5); Lymphocytes % 33.5 % (10-50); Mean Corpuscular HGB Conc 30.8 g/dL (31.8-35.4); Mean Corpuscular Volume 95.1 fl (81-99); Mean Platelet Volume 7.6 fl (7.4-10.4); Monocytes # 0.5 K/mm3 (0.1-1.0); Monocytes % 5.5 % (1.7-9.3); Neutrophils # 5.5 K/mm3 (1.8-7.8); Neutrophils % 59.3 % (37.0-80.0); Platelet Count 192 K/mm3 (142-424); Red Blood Count 3.14 M/mm3 (4.20-5.40); Red Cell Distribution Width 13.3 % (11.5-17.5); White Blood Count 9.3 K/mm3 (4.8-10.8)
[2019-04-04 09:41] LABS: Anion Gap 9.4 mEq/L (5-15)
--- NOTE | 2019-04-05 12:40 | Discharge Summary ---
General - General Admission date:: 04/03/19 Discharge date: 04/05/19 HPI HPI: this pt who had h admit about 2 weeks ago for prob pneummonia - had been doing ok at [facility] and dev fever and did not feel well and was eval in the ed with elevated temp and had sepsis criteria and was admitted for eval and ivf and abx - pt denied cough or abd pain - recent admit and d/c summary was reviewed Hospital Course Hospital Course: pt was admitted and given ivf and abx as per sepsis guidelines - she responded to ivf and remained afebrile and has c diff enteritis and was on po vancomycin- pt has stable vs and was letitia diet and was d/c to [facility] to complete 10 day course of vancomycin 250 qid Objective Vital signs: Temp Pulse Resp BP Pulse Ox 98.1 F 70 21 141/67 H 95 04/05/19 08:00 04/05/19 08:00 04/05/19 08:00 04/05/19 08:00 04/05/19 08:00 no acute distress, obese - *Routine HEENT Exam Head: Present: normocephalic Eye: Present: EOMI, PERRL. Absent: conjunctival icterus ENT: Present: mucous membranes dry - *Routine Neck Exam Present: supple. Absent: JVD - *Routine Respiratory Exam Present: CTA bilaterally - *Routine Cardiovascular Exam Present: RRR, murmur - *Routine Abdominal Exam Present: soft - *Routine Extremities Exam Present: edema. Absent: calf tenderness - *Routine Skin Exam Present: intact - *Routine Neurological Exam Present: alert, CN II-XII intact - Routine Psychiatric Exam Absent: paranoid Results Labs on day of discharge: Labs from last 24 hours 04/05/19 04/05/19 04/04/19 11:32 05:48 21:28 POC Glucose 99 88 113 H 04/04/19 04/04/19 04/03/19 16:48 12:17 06:09 POC Glucose 86 113 H 134 H Preliminary micro results at discharge 04/02/19 21:30 Blood Culture - Preliminary Blood NO GROWTH AFTER 48 HOURS 04/02/19 21:30 Blood Culture - Preliminary Blood NO GROWTH AFTER 48 HOURS DS: Diagnosis - Discharge Diagnosis (1) Febrile illness, acute Status: Acute (2) Schizophrenia Status: Acute (3) Dystonia Status: Acute (4) Obesity (BMI 30-39.9) Status: Acute (5) Sepsis Status: Acute (6) Anemia Status: Acute (7) Acute renal failure (ARF) Status: Acute (8) C. difficile enteritis Status: Acute Discharge Plan - Patient Discharge Instructions ACTIVITY: Continue current activity DIET: continue same diet Patient Instructions: Antibiotic-associated Colitis -- C difficile, DI for Sepsis -- Adult - Follow up Plan Disposition: [facility] Home Medications: Home Medications Medication Instructions Recorded Confirmed Type Aspirin [Aspirin 81mg chewable 81 mg PO DAILY 05/18/18 04/02/19 History tab] Baclofen [Lioresal 10mg tablet] 10 mg PO BID 05/18/18 04/02/19 History Benztropine Mesylate [Cogentin 1mg 1 mg PO BID 05/18/18 04/02/19 History tablet] Divalproex Sodium [Depakote] 250 mg PO DAILY 05/18/18 04/02/19 History Lisinopril [Lisinopril 10mg Tab] 10 mg PO BID 05/18/18 04/02/19 History risperiDONE [Risperdal 0.5mg 0.5 mg PO DAILY 05/18/18 04/02/19 History tablet] albuterol sulfate HFA 90 2 puff INHALATION Q4-6H PRN 02/12/19 04/03/19 History mcg/actuation aerosol inhaler citalopram 20 mg tablet 20 mg PO DAILY tab 02/12/19 04/02/19 History divalproex ER 500 mg 500 mg PO HS tab 02/12/19 04/02/19 History tablet,extended release 24 hr fesoterodine ER 8 mg 8 mg PO DAILY 02/12/19 04/03/19 History tablet,extended release 24 hr ondansetron HCl 4 mg tablet 4 mg PO Q6HP PRN 02/12/19 04/02/19 History Acetaminophen [Acetaminophen 325mg 650 mg PO Q6HP PRN 03/20/19 04/03/19 History tab] Furosemide [Furosemide 20mg Tab] 20 mg PO DAILY 03/20/19 04/02/19 History Guaifenesin/Dextromethorphan 10 ml PO Q4HP PRN 03/20/19 04/03/19 History [Robitussin DM 200mg/20mg 10mL Udc] Ibuprofen [Ibuprofen 400mg 400 mg PO Q4HP PRN 03/20/19 04/03/19 History Tablet] Metoprolol Succinate 50 mg PO DAILY 03/20/19 04/02/19 History Lactulose [Kristalose] 10 gm PO DAILY PRN 04/03/19 04/03/19 History Triamterene/Hydrochlorothiazid 1 each PO BID PRN 04/03/19 04/03/19 History [Maxzide 75 mg-50 mg Tablet] Vancomycin HCl 250 mg PO QID #40 cap 04/05/19 Rx Prescriptions/Medication Reconciliation: New Vancomycin HCl 250 mg PO QID #40 cap Continued ondansetron HCl 4 mg tablet 4 mg PO Q6HP PRN PRN Reason: Nausea albuterol sulfate HFA 90 mcg/actuation aerosol inhaler 2 puff INHALATION Q4- 6H PRN PRN Reason: SHORTNESS OF BREATH/WHEEZING citalopram 20 mg tablet 20 mg PO DAILY tab fesoterodine ER 8 mg tablet,extended release 24 hr 8 mg PO DAILY divalproex ER 500 mg tablet,extended release 24 hr 500 mg PO HS tab Lisinopril [Lisinopril 10mg Tab] 10 mg PO BID Aspirin [Aspirin 81mg chewable tab] 81 mg PO DAILY Benztropine Mesylate [Cogentin 1mg tablet] 1 mg PO BID Baclofen [Lioresal 10mg tablet] 10 mg PO BID Metoprolol Succinate 50 mg PO DAILY Guaifenesin/Dextromethorphan [Robitussin DM 200mg/20mg 10mL Udc] 10 ml PO Q4HP PRN PRN Reason: COUGH/CONGESTION Lactulose [Kristalose] 10 gm PO DAILY PRN PRN Reason: Constipation risperiDONE [Risperdal 0.5mg tablet] 0.5 mg PO DAILY Divalproex Sodium [Depakote] 250 mg PO DAILY Acetaminophen [Acetaminophen 325mg tab] 650 mg PO Q6HP PRN PRN Reason: LEG PAIN Discontinued Furosemide [Furosemide 20mg Tab] 20 mg PO DAILY Triamterene/Hydrochlorothiazid [Maxzide 75 mg-50 mg Tablet] 1 each PO BID PRN PRN Reason: Edema Ibuprofen [Ibuprofen 400mg Tablet] 400 mg PO Q4HP PRN PRN Reason: PAIN
== END 2019-04-05 15:50 | DRG 872 ==
LOC: 2ND 21:17 → ER 21:17 → 2ND 04-03 00:56
PROVIDERS: ADMIT Emergency Medicine; ATTEND Emergency Medicine
CPT/HCPCS: 36415; 71010; 71045; 80048; 80053; 81001; 82803; 82962; 83605; 85025; 85651; 86140; 87040; 87086; 87506; 93005; 96365; 96367; 99285; J2543; J3370

== ENCOUNTER → 2019-06-02 13:21 | Outpatient (CLI) | payer MEDICARE, MEDICAID, SELFPAY ==
--- NOTE | 2019-06-02 13:26 | FL_ITS ---
PROCEDURE: FL BARIUM SWALLOW MODIFIED CLINICAL INDICATION: DETERMINE SAFE DIET Dysphagia COMPARISON: No exams were available for comparison TECHNIQUE: Patient administered varying consistencies of barium contrast, while viewed in lateral position under real-time fluoroscopy with cine recording. FLUOROSCOPY TIME:1 minutes 34 seconds The study was performed in conjunction with speech pathologist. Please see that report & recommendations. FINDINGS: Patient was given varying consistencies of barium. There was minimal premature into the valleculae and piriform sinus. No aspiration or penetration IMPRESSION: The premature spillage. No aspiration or penetration Please see speech pathologist report and recommendations. Cut that Dictated by: Emmett Almazan MD 06/04/2019 14:33 Electronically signed by Emmett Almazan MD in [place] 06/04/2019 14:33
--- NOTE | 2019-06-02 14:33 | HMH.SLMBS2 ---
Speech & Language Evaluation Speech/Language Mod Barium Swallow Start: 06/02/19 14:04 Freq: once Status: Complete Protocol: Document 06/02/19 14:04 RO (Rec: 06/02/19 14:33 RO [id number]) [facility] [place] Diet Dietary Recommendations Dysphagia Mechanical Soft,Thin Liquids Treatment/Strategies Strategy/Precaution Recommend Sitting Upright (90 deg), Liquids from Straw Mod Barium Swallow Impressions Summary and Impressions Oral Phase Summary Ms. Herbert was given the following consistencies: thins via straw, pudding, pureed, mechanical soft, and mixed. No signs of dysphagia noted with the oral phase of swallowing noted. Pharyngeal Phase Impression Minimal Impairment Pharyngeal Phase Summary Premature spillage into the pharynx noted with all consistencies however aspiration not noted. Speech/Language MBS Assessment/Goals/Plan Assessment Date of Evaluation: 06/02/19 Evaluation Type Initial Certification Assessment/Problems Dysphagia Does Patient Qualify for Service No Qualify/Failure Comment Diet recommendations remain the same at this time. Recommendations PHYSICIAN CERTIFICATION: The specified therapy services are required, authorized, and reviewed every 30 days. Diet Recommendations Dysphagia Mechanical Soft Liquid Type Recommendations Normal/Thin SL Swallow Guidelines Standard Aspiration Prec. Dysphagia Swallow Precautions/Strategies Sitting Upright (90 deg), Liquids from Straw Plan Pt/Guardian verbally ack understanding Yes of dx/prognosis/goals G -code Required Yes G-CODES ST Current Status [id number] ST Current Status Modifier CI-At least 1% but less than 20% impaired, limited or restricted ST Goal Status [id number] ST Goal Status Modifier CI-At least 1% but less than 20% impaired, limited or restricted Mod Barium Swallow Setup Exam Setup Radiologist Emmett Almazan Level of Consciousness Awake,Alert,Appropriate, Follows Commands Position (degrees) 90 Mod Barium Swallow-Lat View Textures Lateral View Food Presentation Thin Liquid via Cup,Thin Liquid via Straw,Pureed Food- Thick,Ground Food- Regular,
== END ==
PROVIDERS: PCP Emergency Medicine; Visit Provider Emergency Medicine
DX: R13.10 Dysphagia, unspecified (principal)
CPT/HCPCS: 70371; 92611

== ENCOUNTER 2019-09-11 05:13 | Observation (INO) ==
--- NOTE | 2019-09-11 06:24 | Emergency Department Note ---
ED Disposition Clinical Impression: HCAP (healthcare-associated pneumonia), Tremor, Hyponatremia Fall Qualifiers: Encounter type: initial encounter Qualified Code(s): W19.XXXA - Unspecified fall, initial encounter Schizophrenia Qualifiers: Schizophrenia type: unspecified Qualified Code(s): F20.9 - Schizophrenia, unspecified Disposition: Admitted as Observation Condition on Discharge: Fair Referrals: Bryon Beaulieu MD [Primary Care Provider] - - Critical Care Critical Care Time: No Attestation: On 09/11/19, the high probability of a clinically significant, sudden or life threatening deterioration of the following system(s) required my full and direct attention, intervention and personal management. The time I documented below is in addition to time spent performing reported procedures but includes the following listed in this critical care notation. Medical Decision Making - Medical Records Medical records reviewed: Yes: I reviewed the patient's medical records. - Otis Inquiry Pt receiving controlled substance: No Vital Signs: 09/11/19 04:12 Temperature 98.3 F Temperature Source Oral Pulse Rate [Left Radial] 66 Respiratory Rate 16 Blood Pressure [Right Arm] 126/87 Blood Pressure Mean [Right Arm] 100 Blood Pressure Source [Right Arm] Automatic Cuff Blood Pressure Position [Right Arm] Sitting 02 Sat by Pulse Oximetry 92 L Oxygen Delivery Method Room Air - Lab Data Lab results reviewed: Yes: I reviewed the patient's lab results. Lab Results 09/11/19 06:40: WBC 14.0 H, RBC 4.10 L, Hgb 12.1 L, Hct 38.6, MCV 94.3, MCH 29.5, MCHC 31.3 L, RDW 13.7, Plt Count 277, MPV 8.0, Neut % (Auto) 87.1 H, Lymph % (Auto) 6.4 L, [place] % (Auto) 6.0, Eos % (Auto) 0.4, Baso % (Auto) 0.2, Neut # (Auto) 12.2 H, Lymph # (Auto) 0.9, [place] # (Auto) 0.8, Eos # (Auto) 0.1, Baso # (Auto) 0.0, Total Counted 100, Neutrophils % (Manual) 87 H, Band Neutrophils % 1.0, Lymphocytes % (Manual) 7 L, Monocytes % (Manual) 5, Platelet Estimate Normal, RBC Morphology Normal 09/11/19 06:40: Sodium 127 L, Potassium 3.6, Chloride 90 L, Carbon Dioxide 35 H, Anion Gap 5.6, BUN 17, Creatinine 0.92, Estimated Creat Clear 46, Estimated GFR 59, Est GFR ( Amer) 72, Glucose 120 H, Calcium 8.5, Troponin I < 0.02 09/11/19 06:40: Lactate 0.8 09/11/19 06:40: B-Natriuretic Peptide 94 09/11/19 06:55: Urine RBC 3-5, Urine WBC 3-5, Ur Squamous Epith Cells 10-20, Urine Bacteria 1+ Result diagrams: 09/11/19 06:40 09/11/19 06:40 Orders (Tests/Meds): ED MEDICATIONS Generic Name Dose Route Start Last Admin Trade Name Freq PRN Reason Stop Dose Admin Piperacillin Sod/Tazobactam 100 mls @ 200 mls/hr 09/11/19 07:15 09/11/19 07:15 Sod 4.5 gm/ Sodium Chloride IV 09/25/19 07:14 200 mls/hr Q6H MICHAEL Administration Protocol Levofloxacin/Dextrose 750 mg in 150 mls @ 100 mls/hr 09/11/19 07:15 Levofloxacin 750mg/150ml Premix IV 09/25/19 07:14 Q24H MICHAEL Protocol Discontinued Medications Generic Name Dose Route Start Last Admin Trade Name Freq PRN Reason Stop Dose Admin Furosemide 40 mg 09/11/19 07:07 09/11/19 07:10 Lasix 40mg/4ml Vial IV 09/11/19 07:08 40 mg ONCE ONE Administration Levofloxacin/Dextrose 250 mg in 50 mls @ 100 mls/hr 09/11/19 07:15 Levaquin 250mg/50ml Premix IV 09/25/19 07:14 Q24H [facility] Protocol ORDERS Category Date Time Status CT cervical spine wo con Stat Cat Scan 09/11/19 04:[address] head/brain wo con Stat Cat Scan 09/11/19 04:21 Taken Ankle XR -Right minimum 3 Views [XR ankle RT min 3V] Exams 09/11/19 05:08 Taken Stat XR chest AP Stat Exams 09/11/19 04:21 Taken XR hip RT 2-3V w/pelvis Stat Exams 09/11/19 04:21 Taken Troponin I Q3H Lab 09/11/19 09:45 Ordered Troponin I Q3H Lab 09/11/19 12:45 Ordered Urinalysis and Microscopic Stat Lab 09/11/19 06:55 Results Blood Culture Stat Micro 09/11/19 06:40 Received 12-lead EKG Request [ECG Request by /Caitlin] Stat Y 09/11/19 07:28 Ordered - Radiology Data #1 Image(s): Chest, Pelvis, Ankle Image Reviewed: Yes I reviewed the patient's radiology image Preliminary Findings: Abnormal changes cxr - CT Data CT Scan: Head, C-Spine Time Received: 06:[address] Reviewed: Yes: I have viewed the radiologist's interpretation Preliminary Findings: No Fracture Seen - ECG Data Tracing #1 Arrhythmias present: sinus tach Ischemic changes: non-specific ST-T wave changes Fall HPI - General Chief Complaint: Fall Stated Complaint: fall Time Seen by Provider: 09/11/19 05:20 Mode of Arrival: Ambulatory Source of Information: Patient, EMS, Medical Record Limitations: No Limitations Description of Symptoms (Recalled from ER Triage Doc. by RN): per detention report pt fell in her room. fall was unwhitnessed. per detention staff pt complained of right hip pain. ems stated pt walked herself to the strether. pt denies any pain at this time. 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 -- pt is poor historian complaint: fall Onset (ago): hour(s) Fall from: out of bed Fall witnessed: no Place fall occurred: detention/SNF Loss of consciousness: none Prolonged down time: no Context: history of frequent falls Location of injury - extremities: Right: thigh, ankle Severity: moderate Associated symptoms (after fall): denies - Related Data Home Medications Medication Instructions Recorded Confirmed Aspirin [Aspirin 81mg chewable 81 mg PO DAILY 05/18/18 09/11/19 tab] Baclofen [Lioresal 10mg tablet] 10 mg PO BID 05/18/18 09/11/19 Divalproex Sodium [Depakote] 250 mg PO DAILY 05/18/18 09/11/19 lisinopriL [Lisinopril 10mg Tab] 10 mg PO BID 05/18/18 09/11/19 albuterol sulfate 90 mcg/actuation 2 puff INHALATION Q4-6H PRN 02/12/19 09/11/19 aerosol inhaler citalopram 20 mg tablet 20 mg PO DAILY tab 02/12/19 09/11/19 divalproex 500 mg tablet,extended 500 mg PO HS tab 02/12/19 09/11/19 release 24 hr ondansetron HCl 4 mg tablet 4 mg PO Q6HP PRN 02/12/19 09/11/19 Acetaminophen [Acetaminophen 325mg 650 mg PO Q6HP PRN 03/20/19 09/11/19 tab] Metoprolol Succinate 25 mg PO BID 03/20/19 09/11/19 Lactulose [Kristalose] 10 gm PO DAILY PRN 04/03/19 09/11/19 Oxybutynin Chloride 5 mg PO BID 09/02/19 09/11/19 Valbenazine Tosylate [Ingrezza] 80 mg PO DAILY 09/02/19 09/11/19 Omeprazole [Omeprazole 20mg Tab] 20 mg PO DAILY 09/11/19 09/11/19 guaiFENesin [Robafen] 100 mg PO NEEDED PRN 09/11/19 09/11/19 Allergies Allergy/AdvReac Type Severity Reaction Status Date / Time No Known Allergies Allergy Verified 07/27/19 17:02 [facility] History - Hepatitis A Screen Drug use history?: No High risk sexual behaviors?: No History of sexually transmitted infection?: No Currently employed?: No Childcare worker?: No Do you have indoor plumbing?: Yes Do you have electricity?: Yes Attestation statement:: This patient has been screened for Hepatitis A risk factors. I have reviewed the patient's past medical history: Yes Medical History: Reports:: Diabetes Mellitus Type 2, Hypertension Other Medical History: Reports: Other (Schizoaffective disorder, tremors, tardive dyskinesia) - Social History Smoking Status: Never smoker Alcohol Intake: never Occupational Status: retired Housing: assisted living facility Family Hx:: Unable to obtain ROS Obtained: Yes All systems reviewed & no additional complaints - Constitutional Constitutional: Denies fever(s) - Eyes Eyes: Denies change in vision - ENT Ears, Nose, Mouth, and Throat: Denies sore throat - Cardiovascular Cardiovascular: Denies chest pain - Respiratory Respiratory: Yes cough - Gastrointestinal Gastrointestingal: Reports: abdominal pain - Genitourinary Female Genitourinary: Denies hematuria - Musculoskeletal Musculoskeletal: Denies joint swelling - Integumentary/Breasts Skin/Breast: Denies rash - Neurologic Neurologic: Denies seizure-like activity Physical Exam - General General appearance: alert - Head Head exam: normocephalic - Eye Eye exam: Present: PERRL, EOMI - ENT ENT exam: Present: mucous membranes dry, other (tartive dyskinesia ) - Neck Neck exam: Present: trachea midline - Respiratory Respiratory exam: Absent: respiratory distress - Cardiovascular Cardiovascular exam: Present: regular rate, systolic murmur, +S4 - Abdominal Exam Abdominal exam: Present: soft - Extremities Exam Extremities exam: Absent: calf tenderness - Expanded Lower Extremity Exam Right Hip/Pelvis exam: Present: pelvis stable, pain on hip/pelvis palpation Foot/toe exam: Present: tenderness, swelling - Neurological Exam Neurological exam: Present: alert, CN II-XII intact - Skin Skin exam: Absent: rash
[2019-09-11 06:56] LABS: Basophils % 0.2 % (0.1-2.0); Eosinophils # 0.1 K/mm3 (0.0-0.4); Eosinophils % 0.4 % (0.1-12.0); Hematocrit 38.6 % (37.0-47.0); Hemoglobin 12.1 g/dL (12.2-16.2); Lymphocytes # 0.9 K/mm3 (0.7-4.5); Lymphocytes % 6.4 % (10-50); Mean Corpuscular HGB Conc 31.3 g/dL (31.8-35.4); Mean Corpuscular Volume 94.3 fl (81-99); Monocytes # 0.8 K/mm3 (0.1-1.0); Neutrophils # 12.2 K/mm3 (1.8-7.8); Neutrophils % 87.1 % (37.0-80.0); Platelet Count 277 K/mm3 (142-424); Red Cell Distribution Width 13.7 % (11.5-17.5)
[2019-09-11 07:02] LABS: Microscopic, Urine URINE MICROSCOPIC (MICROSCOPIC)
[2019-09-11 07:10] LABS: Anion Gap 5.6 mEq/L (5-15); Blood Urea Nitrogen 17 mg/dL (7-18); Calcium 8.5 mg/dL (8.5-10.1); Carbon Dioxide 35 mmol/L (21.0-32.0); Chloride 90 mmol/L (98-107); Glucose 120 mg/dL (74-106); Sodium 127 mmol/L (136-145)
[2019-09-11 07:17] LABS: Lymphocytes % 7 % (10-50); Monocytes % 5 % (2-9); Neutrophils % 87 % (42-76); RBC Morphology Normal; Total Cells Counted 100
[2019-09-11 07:23] LABS: Bacteria,Urine 1+ /lpf
[2019-09-11 07:26] LABS: Appearance,Urine CLEAR (Clear); Bilirubin,Urine Negative (Negative); Blood, Urine TRACE-I (Negative); Color,Urine YELLOW (Yellow); Glucose,Urine (UA) Negative (Negative); Ketones,Urine TRACE (Negative); Leukocyte Esterase,Urine Negative (Negative); Protein,Urine Negative (Negative); Specific Gravity, Urine 1.015 (1.005-1.030)
--- NOTE | 2019-09-11 08:18 | History & Physical Report ---
*Admission Date: 09/11/19 *Chief complaint: sob *History of present illness: this elderly wf sent from [facility] to unwitnessed fall - no fx seen but noted to have abn cxr with prob hcap and possible volume overload- she is dec from baseline and poor historian - she has tardive dyskinesia and schizophrenia [facility] History I have reviewed the patient's past medical history: Yes Medical History: Reports:: Diabetes Mellitus Type 2, Hypertension *Have you ever received a pneumonia vaccine?: Yes *Have you received a flu vaccine this season?: Yes Other Medical History: Reports: Other (Schizoaffective disorder, tremors, tardive dyskinesia) - *Social History Smoking Status: Never smoker Alcohol Intake: never *Occupational Status:: retired Housing: assisted living facility *Travel in the last 8 weeks: None Family Hx:: Unable to obtain Review of Systems - Review of Systems Review of systems:: unable to obtain - *Neurologic Denies seizure-like activity Meds Home Medications Medication Instructions Recorded Confirmed Type Aspirin [Aspirin 81mg chewable 81 mg PO DAILY 05/18/18 09/11/19 History tab] Baclofen [Lioresal 10mg tablet] 10 mg PO BID 05/18/18 09/11/19 History Divalproex Sodium [Depakote] 250 mg PO DAILY 05/18/18 09/11/19 History lisinopriL [Lisinopril 10mg Tab] 10 mg PO BID 05/18/18 09/11/19 History albuterol sulfate 90 mcg/actuation 2 puff INHALATION Q4-6H PRN 02/12/19 09/11/19 History aerosol inhaler citalopram 20 mg tablet 20 mg PO DAILY tab 02/12/19 09/11/19 History divalproex 500 mg tablet,extended 500 mg PO HS tab 02/12/19 09/11/19 History release 24 hr ondansetron HCl 4 mg tablet 4 mg PO Q6HP PRN 02/12/19 09/11/19 History Acetaminophen [Acetaminophen 325mg 650 mg PO Q6HP PRN 03/20/19 09/11/19 History tab] Metoprolol Succinate 25 mg PO BID 03/20/19 09/11/19 History Lactulose [Kristalose] 10 gm PO DAILY PRN 04/03/19 09/11/19 History Oxybutynin Chloride 5 mg PO BID 09/02/19 09/11/19 History Valbenazine Tosylate [Ingrezza] 80 mg PO DAILY 09/02/19 09/11/19 History Omeprazole [Omeprazole 20mg Tab] 20 mg PO DAILY 09/11/19 09/11/19 History guaiFENesin [Robafen] 100 mg PO NEEDED PRN 09/11/19 09/11/19 History Allergies Allergy/AdvReac Type Severity Reaction Status Date / Time No Known Allergies Allergy Verified 07/27/19 17:02 Exam Vital signs and Labs for Last 24 Hours: Temp Pulse Resp BP Pulse Ox 98.3 F 66 16 126/87 92 L 09/11/19 04:12 09/11/19 04:12 09/11/19 04:12 09/11/19 04:12 09/11/19 04:12 Laboratory Results - last 24 hr 09/11/19 06:40: WBC 14.0 H, RBC 4.10 L, Hgb 12.1 L, Hct 38.6, MCV 94.3, MCH 29.5, MCHC 31.3 L, RDW 13.7, Plt Count 277, MPV 8.0, Neut % (Auto) 87.1 H, Lymph % (Auto) 6.4 L, [place] % (Auto) 6.0, Eos % (Auto) 0.4, Baso % (Auto) 0.2, Neut # (Auto) 12.2 H, Lymph # (Auto) 0.9, [place] # (Auto) 0.8, Eos # (Auto) 0.1, Baso # (Auto) 0.0, Total Counted 100, Neutrophils % (Manual) 87 H, Band Neutrophils % 1.0, Lymphocytes % (Manual) 7 L, Monocytes % (Manual) 5, Platelet Estimate Normal, RBC Morphology Normal 09/11/19 06:40: Sodium 127 L, Potassium 3.6, Chloride 90 L, Carbon Dioxide 35 H, Anion Gap 5.6, BUN 17, Creatinine 0.92, Estimated Creat Clear 46, Estimated GFR 59, Est GFR ( Amer) 72, Glucose 120 H, Calcium 8.5, Troponin I < 0.02 09/11/19 06:40: Lactate 0.8 09/11/19 06:40: B-Natriuretic Peptide 94 09/11/19 06:55: Urine Color Yellow, Urine Appearance Clear, Urine pH 7.0, Ur Specific [place] 1.015, Urine Protein Negative, Urine Glucose (UA) Negative, Urine Ketones Trace, Urine Blood Trace-i, Urine Nitrate Negative, Urine Bi lirubin Negative, Urine Urobilinogen 2.0, Ur Leukocyte Esterase Negative, Urine RBC 3-5, Urine WBC 3-5, Ur Squamous Epith Cells 10-20, Urine Bacteria 1+ I & O for Last 24 hours: Intake & Output 09/08/19 09/09/19 09/10/19 09/11/19 11:59 11:59 11:59 11:59 Weight 137 lb - Constitutional no acute distress - *Routine HEENT Exam Head: Present: normocephalic Eye: Present: EOMI, PERRL ENT: Present: mucous membranes dry - *Routine Neck Exam Absent: JVD - *Routine Respiratory Exam Present: decreased breath sounds - *Routine Cardiovascular Exam Present: RRR, murmur, S4 - *Routine Abdominal Exam Present: soft - *Routine Extremities Exam Absent: calf tenderness - *Routine Skin Exam Present: intact - *Routine Neurological Exam Present: alert, CN II-XII intact - Routine Psychiatric Exam Present: unable to assess. Absent: good insight Assessment and Plan (1) Contusion of hip, left Current visit: No Status: Acute Qualifiers: Encounter type: initial encounter Qualified Code(s): S70.02XA - Contusion of left hip, initial encounter Category: Medical Code(s): S70.02XA - Contusion of left hip, initial encounter (2) Fall Current visit: Yes Status: Acute Qualifiers: Encounter type: initial encounter Qualified Code(s): W19.XXXA - Unspecified fall, initial encounter Category: Medical Code(s): W19.XXXA - Unspecified fall, initial encounter (3) HCAP (healthcare-associated pneumonia) Current visit: Yes Status: Acute Category: Medical Code(s): J18.9 - Pneumonia, unspecified organism (4) Tremor Current visit: Yes Status: Acute Category: Medical Code(s): R25.1 - Tremor, unspecified (5) Fall at [facility] Current visit: No Status: Acute Category: Medical Code(s): W19.XXXA - Unspecified fall, initial encounter; Y92.129 - Unspecified place in [facility] as the place of occurrence of the external cause (6) Obesity (BMI 30-39.9) Current visit: No Status: Chronic Category: Medical Code(s): E66.9 - Obesity, unspecified (7) Schizophrenia Current visit: Yes Status: Chronic Qualifiers: Schizophrenia type: unspecified Qualified Code(s): F20.9 - Schizophrenia, unspecified Category: Medical Code(s): F20.9 - Schizophrenia, unspecified
--- NOTE | 2019-09-11 11:31 | Pharmacy Consult Notes ---
[facility] Pharmacy VTE Monitoring - Patient Demographics Admission date: 09/11/19 Report Date: 09/11/19 Time: 11:31 Allergies/Adverse Reactions: Patient Allergies No Known Allergies Allergy (Verified 07/27/19 17:02) Height: 1.52 m Weight: 82.639 kg Patient Problems: Current Active Problems Fall (Acute) HCAP (healthcare-associated pneumonia) (Acute) Hyponatremia (Acute) Tremor (Acute) Schizophrenia (Chronic) - VTE Risk Labs: VTE Related Lab Results Hgb 12.1 g/dL (12.2-16.2) L 09/11/19 06:40 Hct 38.6 % (37.0-47.0) 09/11/19 06:40 Plt Count 277 K/mm3 (142-424) 09/11/19 06:40 BUN 17 mg/dL (7-18) 09/11/19 06:40 Creatinine 0.92 mg/dL (0.55-1.02) 09/11/19 06:40 Estimated Creat Clear 46 mL/min (50-200) 09/11/19 06:40 VTE Risk Level: High Risk - Prophylaxis VTE Prophylaxis Ordered?: Yes Types of VTE Prophylaxis: TEDS Knee High Location of Applied Device: Bilateral Lower Extremeties - VTE Diagnosis Confirmed Treatment or plan recommended: Continue Current Treatment
[2019-09-12 07:50] LABS: Basophils % 0.2 % (0.1-2.0); Eosinophils # 0.1 K/mm3 (0.0-0.4); Eosinophils % 0.8 % (0.1-12.0); Hematocrit 35.4 % (37.0-47.0); Hemoglobin 11.2 g/dL (12.2-16.2); Lymphocytes % 22.4 % (10-50); Mean Corpuscular HGB Conc 31.7 g/dL (31.8-35.4); Mean Corpuscular Volume 94.2 fl (81-99); Monocytes # 0.8 K/mm3 (0.1-1.0); Monocytes % 6.1 % (1.7-9.3); Neutrophils # 9.3 K/mm3 (1.8-7.8); Neutrophils % 70.5 % (37.0-80.0); Platelet Count 244 K/mm3 (142-424); Red Blood Count 3.75 M/mm3 (4.20-5.40); Red Cell Distribution Width 13.8 % (11.5-17.5); White Blood Count 13.2 K/mm3 (4.8-10.8)
[2019-09-12 07:55] LABS: Anion Gap 10.1 mEq/L (5-15); Calcium 8.1 mg/dL (8.5-10.1)
--- NOTE | 2019-09-12 15:34 | Discharge Summary ---
General - General Admission date:: 09/11/19 Discharge date: 09/12/19 HPI HPI: this elderly wf [facility] from [facility] to [facility]itness[facility] - no fx seen but noted to have abn cxr with prob hcap and possible volume overload- she is dec from baseline and poor historian - she has tardive dyskinesia and schizophrenia Hospital Course Hospital Course: Ms. Herbert did well during admission. Required her baseline oxygen needs. Tolerated breathing treatments well. Found to have pneumonia on work-up and x- ray. Started on broad-spectrum antibiotics. Remained afebrile during admission. Tolerating good p.o. intake with assistance. Essentially at her baseline level of function. Plan to transition oral antibiotics that may be initiated on Friday as she will receive a dose of Levaquin on Friday which covers over 24 hours. Denies chest pain, nausea, vomiting, diarrhea. Tremor at baseline. Medically stable for [facility]. Objective Vital signs: Temp Pulse Resp BP Pulse Ox 98.9 F 78 25 H 151/88 H 96 09/12/19 12:00 09/12/19 14:58 09/12/19 12:00 09/12/19 12:00 09/12/19 12:00 Narrative: - Constitutional no acute distress - *Routine HEENT Exam Head: Present: normocephalic Eye: Present: EOMI, PERRL ENT: Present: mucous membranes dry - *Routine Neck Exam Absent: JVD - *Routine Respiratory Exam Present: decreased breath sounds - *Routine Cardiovascular Exam Present: RRR, murmur, S4 - *Routine Abdominal Exam Present: soft - *Routine Extremities Exam Absent: calf tenderness - *Routine Skin Exam Present: intact - *Routine Neurological Exam Present: alert, CN II-XII intact - Routine Psychiatric Exam Present: unable to assess. Absent: good insight Results Labs on day of discharge: Labs from last 24 hours 09/12/19 09/12/19 07:06 07:06 WBC 13.2 H RBC 3.75 L Hgb 11.2 L Hct 35.4 L MCV 94.2 MCH 29.9 MCHC 31.7 L RDW 13.8 Plt Count 244 MPV 8.0 Neut % (Auto) 70.5 Lymph % (Auto) 22.4 [place] % (Auto) 6.1 Eos % (Auto) 0.8 Baso % (Auto) 0.2 Neut # (Auto) 9.3 H Lymph # (Auto) 3.0 [place] # (Auto) 0.8 Eos # (Auto) 0.1 Baso # (Auto) 0.0 Sodium 129 L Potassium 3.1 L Chloride 90 L Carbon Dioxide 32 Anion Gap 10.1 BUN 14 Creatinine 1.02 Estimated Creat Clear 61 Estimated GFR 53 L Est GFR ( Amer) 64 Glucose 99 Calcium 8.1 L Magnesium 0.9 L DS: Diagnosis - Discharge Diagnosis (1) Contusion of hip, left Status: Acute (2) Fall Status: Acute (3) HCAP (healthcare-associated pneumonia) Status: Acute (4) Tremor Status: Acute (5) [facility] Status: Acute (6) Obesity (BMI 30-39.9) Status: Chronic (7) Schizophrenia Status: Chronic Discharge Plan - Patient Discharge Instructions ACTIVITY: Up with assistance DIET: continue same diet Patient Instructions: DI for Pneumonia -- Adult, DI for Hyponatremia, How to Prevent Falls - Follow up Plan [facility]position[facility] Home Medications: Home Medications Medication Instructions Recorded Confirmed Type Aspirin [Aspirin 81mg chewable 81 mg PO DAILY 05/18/18 09/11/19 History tab] Baclofen [Lioresal 10mg tablet] 10 mg PO BID 05/18/18 09/11/19 History Divalproex Sodium [Depakote] 250 mg PO DAILY 05/18/18 09/11/19 History lisinopriL [Lisinopril 10mg Tab] 10 mg PO BID 05/18/18 09/11/19 History albuterol sulfate 90 mcg/actuation 2 puff INHALATION Q4-6H PRN 02/12/19 09/11/19 History aerosol inhaler citalopram 20 mg tablet 20 mg PO DAILY tab 02/12/19 09/11/19 History ondansetron HCl 4 mg tablet 4 mg PO Q6HP PRN 02/12/19 09/11/19 History Acetaminophen [Acetaminophen 325mg 650 mg PO Q6HP PRN 03/20/19 09/11/19 History tab] Lactulose [Kristalose] 10 gm PO DAILYP PRN 04/03/19 09/11/19 History Oxybutynin Chloride 5 mg PO BID 09/02/19 09/11/19 History Valbenazine Tosylate [Ingrezza] 80 mg PO DAILY 09/02/19 09/11/19 History Divalproex Sodium 500 mg PO HS 09/11/19 09/11/19 History Metoprolol Tartrate [Lopressor 25 mg PO BID 09/11/19 09/11/19 History 25mg tablet] Omeprazole [Omeprazole 20mg Tab] 20 mg PO DAILY 09/11/19 09/11/19 History guaiFENesin [Robafen] 100 mg PO NEEDED PRN 09/11/19 09/11/19 History levoFLOXacin [Levaquin 750mg 750 mg PO DAILY #7 tab 09/12/19 Rx tablet] Prescriptions/Medication Reconciliation: Continued ondansetron HCl 4 mg tablet 4 mg PO Q6HP PRN PRN Reason: Nausea albuterol sulfate 90 mcg/actuation aerosol inhaler 2 puff INHALATION Q4-6H PRN PRN Reason: SHORTNESS OF BREATH/WHEEZING citalopram 20 mg tablet 20 mg PO DAILY tab lisinopriL [Lisinopril 10mg Tab] 10 mg PO BID Aspirin [Aspirin 81mg chewable tab] 81 mg PO DAILY Baclofen [Lioresal 10mg tablet] 10 mg PO BID Lactulose [Kristalose] 10 gm PO DAILYP PRN PRN Reason: Constipation Oxybutynin Chloride 5 mg PO BID guaiFENesin [Robafen] 100 mg PO NEEDED PRN PRN Reason: Cough Divalproex Sodium 500 mg PO HS Divalproex Sodium [Depakote] 250 mg PO DAILY Acetaminophen [Acetaminophen 325mg tab] 650 mg PO Q6HP PRN PRN Reason: LEG PAIN Valbenazine Tosylate [Ingrezza] 80 mg PO DAILY Omeprazole [Omeprazole 20mg Tab] 20 mg PO DAILY Metoprolol Tartrate [Lopressor 25mg tablet] 25 mg PO BID - Problem Reconciliation Problems Reviewed?: Yes
--- NOTE | 2019-09-13 18:26 | Electrocardiograph Report ---
APPROVED REPORT Exam: Resting ECG HR:105 bpm ECG Measurements Heart Rate 105 AXES W[place] 176 P 44 QRSd 92 QRS 75 QT 360 T55 QTc 475 <Conclusion> Sinus tachycardia with motion artifact Abnormal ECG Electronically signed by : Herve Mcarthur, 09/13/2019 18:26:38
== END 2019-09-12 18:06 ==
LOC: 2ND 05:13 → ER 05:13 → 2ND 08:47
PROVIDERS: ADMIT Emergency Medicine; ATTEND Emergency Medicine
DX: Z79.899 Other long term (current) drug therapy; Y92.129 Unspecified place in nursing home as the place of occurrence of the external cause; W01.0XXA Fall on same level from slipping, tripping and stumbling without subsequent striking against object, initial encounter; J18.9 Pneumonia, unspecified organism; F25.9 Schizoaffective disorder, unspecified; G24.01 Drug induced subacute dyskinesia; Y95 Nosocomial condition; E11.9 Type 2 diabetes mellitus without complications; R06.09 Other forms of dyspnea; I10 Essential (primary) hypertension; R25.1 Tremor, unspecified; S70.02XA Contusion of left hip, initial encounter
CPT/HCPCS: 36415; 70450; 71010; 71045; 72125; 73502; 73610; 80048; 81001; 83605; 83735; 83880; 84484; 85007; 85025; 87040; 93005; 94640; 94761; 96365; 96367; 96375; 99285; G0378; J1956; J2543

== ENCOUNTER → 2019-09-22 13:00 | Outpatient (CLI) | payer MEDICARE, MEDICAID, SELFPAY ==
--- NOTE | 2019-09-22 13:25 | FL_ITS ---
PROCEDURE: FL BARIUM SWALLOW MODIFIED CLINICAL INDICATION: DYSPHAGIA COMPARISON: No exams were available for comparison TECHNIQUE: Patient administered varying consistencies of barium contrast, while viewed in lateral position under real-time fluoroscopy with cine recording. FLUOROSCOPY TIME:2 minutes and 35 seconds The study was performed in conjunction with speech pathologist. Please see that report & recommendations. FINDINGS: Patient was given varying consistencies of barium. There was moderate delay in initiation of the swallowing mechanism with spillage of all consistencies into the valleculae and piriform sinuses. No tracheal aspiration or vestibular penetration apparent.. IMPRESSION: Moderate delay with spillage into the valleculae and piriform sinuses but no evidence of a tracheal aspiration Please see speech pathologist report and recommendations. Dictated by: Emmett Almazan MD 09/23/2019 11:29 Electronically signed by Emmett Almazan MD in [place] 09/23/2019 11:29
--- NOTE | 2019-09-22 16:01 | HMH.SLMBS2 ---
Speech & Language Evaluation Speech/Language Mod Barium Swallow Start: 09/22/19 15:15 Freq: once Status: Complete Protocol: Document 09/22/19 15:15 [facility] (Rec: 09/22/19 16:01 CMAY [id number]) [facility] Recommendations Diet Dietary Recommendations Dysphagia Mechanical Soft, Ground Meats,Thin Liquids Treatment/Strategies Strategy/Precaution Recommend Sitting Upright (90 deg), Liquids from Cup,Small Bites and Sips,Alternate Liquids/ Solids Mod Barium Swallow Impressions Summary and Impressions Oral Phase Impression Mild Impairment Oral Phase Summary Patient was presented with trials of thin liquid via spoon, cup, straw; nectar via spoon and cup; honey via spoon ; puree, pudding, and mechanical soft. Patient could not complete trial of thin via straw. Patient was edentulous and exhibited extended mastication and munching during mechancial soft trial. No anterior loss or oral/lingual residue was observed. Pharyngeal Phase Impression Moderate Impairment Pharyngeal Phase Summary Patient exhibited a significant amount of premature spillage to the level of the valleculae with all trials of thin liquids. Patient demonstrated a significant amount of premature spillage into the pharynx to the level of the pyriforms with nectar, honey, pudding, puree, and mechancial soft trials. Patient independently completed a semi -chin tuck during all trials when swallowing that cleared majority of residue. No coughing or gagging was observed. No penetration or aspiration was observed. Speech/Language MBS Assessment/Goals/Plan Assessment Date of Evaluation: 09/22/19 Evaluation Type Initial Certification Assessment/Problems Dysphagia Does Patient Qualify for Service No Qualify/Failure Comment Patient will return to [facility]
== END ==
PROVIDERS: Visit Provider Emergency Medicine
DX: R13.10 Dysphagia, unspecified (principal)
CPT/HCPCS: 70371; 92611

== ENCOUNTER → 2019-10-19 14:15 | Outpatient (CLI) | payer MEDICARE, MEDICAID, SELFPAY | PROVIDERS: Visit Provider Emergency Medicine | DX: Z20.828 Contact with and (suspected) exposure to other viral communicable diseases (principal) | CPT/HCPCS: 87275; 87276 ==

== ENCOUNTER → 2019-11-08 11:37 | Outpatient (CLI) | payer MEDICARE, MEDICAID, SELFPAY ==
[2019-11-08 12:20] LABS: Thyroid Stimulating Hormone 2.32 uIU/mL (0.465-4.68)
== END ==
PROVIDERS: Visit Provider Specialist
DX: R25.1 Tremor, unspecified (principal); Z68.34 Body mass index [BMI] 34.0-34.9, adult
CPT/HCPCS: 36415; 84443

== ENCOUNTER → 2020-05-15 12:30 | Outpatient (CLI) | payer MEDICARE, MEDICAID, SELFPAY ==
--- NOTE | 2020-05-15 12:38 | XR_ITS ---
PROCEDURE: XR WRIST RT MIN 3V CLINICAL INDICATION: RT wrist fracture Pain COMPARISON: No exams were available for comparison FINDINGS: There is a small bony fragment along the base the radial styloid process laterally and could be due to small avulsion injury. No other fracture is evident. There is widening of the scapholunate joint space suggesting ligamentous injury. Mild osteoarthritic changes are present at the 1st metacarpal-carpal junction and the 1st metacarpophalangeal junction. IMPRESSION: Osteoarthritic changes with widening of the scapholunate space and possible small avulsion fracture at the lateral aspect of the radial styloid process Dictated by: Emmett Almazan MD 05/15/2020 17:16 Emmett Almazan MD in [place] 05/15/2020 17:16
== END ==
PROVIDERS: PCP Emergency Medicine; Visit Provider Orthopaedic Surgery
DX: S62.101A Fracture of unspecified carpal bone, right wrist, initial encounter for closed fracture (principal)
CPT/HCPCS: 73110

== ENCOUNTER → 2020-06-05 12:21 | Outpatient (CLI) | payer MEDICARE, MEDICAID, SELFPAY ==
--- NOTE | 2020-06-05 12:27 | XR_ITS ---
PROCEDURE: XR WRIST RT MIN 3V CLINICAL INDICATION: DRF FU Follow-up fracture COMPARISON: CR XR WRIST RT MIN 3V from 05/15/2020 FINDINGS: Small avulsion fracture once again noted involving the lateral aspect of the styloid process of the radius with persistent widening of the scapholunate joint space. IMPRESSION: No change avulsion fracture distal radius with widening of the scapholunate space Dictated by: Emmett Almazan MD 06/05/2020 13:11 Emmett Almazan MD in [facility] 06/05/2020 13:11
== END ==
PROVIDERS: PCP Emergency Medicine; Visit Provider Orthopaedic Surgery
DX: S62.101A Fracture of unspecified carpal bone, right wrist, initial encounter for closed fracture (principal)
CPT/HCPCS: 73110

== ENCOUNTER → 2020-09-29 21:08 | Outpatient (CLI) | payer MEDICARE, MEDICAID, SELFPAY | PROVIDERS: PCP Emergency Medicine; Visit Provider Nurse Practitioner Family | DX: U07.1 COVID-19 (principal) | CPT/HCPCS: U0003 ==

== ENCOUNTER → 2021-09-28 18:44 | Outpatient (CLI) | payer MEDICARE, MEDICAID, SELFPAY | PROVIDERS: PCP Emergency Medicine; Visit Provider Emergency Medicine | DX: Z20.822 Contact with and (suspected) exposure to COVID-19 (principal) | CPT/HCPCS: C9803; U0003; U0005 ==

== ENCOUNTER → 2021-10-01 17:42 | Outpatient (CLI) | payer MEDICARE, MEDICAID, SELFPAY | PROVIDERS: Visit Provider Emergency Medicine | DX: Z20.822 Contact with and (suspected) exposure to COVID-19 (principal) | CPT/HCPCS: C9803; U0003; U0005 ==

== ENCOUNTER → 2022-09-14 17:50 | Outpatient (CLI) | payer MEDICARE, MEDICAID, SELFPAY | PROVIDERS: PCP Emergency Medicine; Visit Provider Emergency Medicine | DX: U07.1 COVID-19 (principal) | CPT/HCPCS: C9803; U0003; U0005 ==

== ENCOUNTER 2023-10-11 09:26 | Outpatient (CLI) | payer MEDICARE, MEDICAID, SELFPAY ==
[2023-10-11 09:55] LABS: Microscopic, Urine URINE MICROSCOPIC (MICROSCOPIC)
[2023-10-11 10:09] LABS: Appearance,Urine CLEAR (Clear); Basophils # 0.1 K/mm3 (0-0.2); Basophils % 0.9 % (0.1-2.0); Bilirubin,Urine Negative (Negative); Blood, Urine Negative (Negative); Color,Urine YELLOW (Yellow); Eosinophils # 0.4 K/mm3 (0.0-0.4); Eosinophils % 4.4 % (0.1-12.0); Glucose,Urine (UA) Negative (Negative); Hematocrit 39.4 % (37.0-47.0); Hemoglobin 13.1 g/dL (12.2-16.2); Ketones,Urine Negative (Negative); Leukocyte Esterase,Urine Negative (Negative); Lymphocytes # 3.4 K/mm3 (0.7-4.5); Lymphocytes % 39.5 % (10-50); Mean Corpuscular HGB Conc 33.2 g/dL (31.8-35.4); Mean Corpuscular Hemoglobin 29.7 pg (27.0-31.2); Mean Corpuscular Volume 89.7 fl (81-99); Mean Platelet Volume 8.1 fl (7.4-10.4); Monocytes # 0.3 K/mm3 (0.1-1.0); Monocytes % 3.4 % (1.7-9.3); Neutrophils # 4.5 K/mm3 (1.8-7.8); Neutrophils % 51.9 % (37.0-80.0); Nitrate,Urine Negative (Negative); Platelet Count 254 K/mm3 (142-424); Protein,Urine Negative (Negative); Red Blood Count 4.39 M/mm3 (4.20-5.40); Red Cell Distribution Width 13.8 % (11.5-17.5); Specific Gravity, Urine 1.015 (1.005-1.030); Urobilinogen,Urine 0.2 EU/dl (0.2); White Blood Count 8.6 K/mm3 (4.8-10.8)
[2023-10-11 10:22] LABS: Bacteria,Urine Trace /lpf; Squamous Epithelial Cell,Urine Occasional #/hpf (0-5)
[2023-10-11 10:50] LABS: Alanine Aminotransferase 30 U/L (12-78); Albumin Level 4.2 g/dl (3.5-5.0); Albumin/Globulin Ratio 1.1 (1.1-1.8); Alkaline Phosphatase 101 U/L (38-126); Anion Gap 12.4 mEq/L (5-15); Aspartate Amino Transferase 37 U/L (14-36); Bilirubin,Total 0.4 mg/dl (0.2-1.3); Blood Urea Nitrogen 14 mg/dl (7-17); Calcium 9.2 mg/dl (8.4-10.2); Carbon Dioxide 28 mmol/L (22.0-30.0); Chloride 104 mmol/L (98-107); Estimated Glomerular Filt Rate 80 ml/min (>60); GFR (African American) 97 ML/MIN (>60); Globulin 3.7 g/dL (1.3-3.2); Glucose 114 mg/dl (74-100); Potassium 4.4 mmoL/L (3.5-5.1); Sodium 140 mmol/L (136-145); Total Protein,Serum 7.9 g/dl (6.3-8.2)
== END 2023-10-11 23:59 ==
LOC: LAB.DROPOF 09:29
PROVIDERS: PCP Internal Medicine; Visit Provider Internal Medicine
DX: E11.9 Type 2 diabetes mellitus without complications (principal); Z79.84 Long term (current) use of oral hypoglycemic drugs; Z79.899 Other long term (current) drug therapy
CPT/HCPCS: 80053; 81001; 85025

== ENCOUNTER 2023-10-11 09:40 | Outpatient (CLI) | payer MEDICARE, MEDICAID, SELFPAY | END 2023-10-11 23:59 | LOC: LAB.DROPOF 09:41 | PROVIDERS: PCP Internal Medicine; Visit Provider Internal Medicine | DX: E11.9 Type 2 diabetes mellitus without complications (principal); Z79.899 Other long term (current) drug therapy; Z79.84 Long term (current) use of oral hypoglycemic drugs ==

== ENCOUNTER 2023-11-28 18:25 | Emergency (ER) | payer MEDICARE, MEDICAID, SELFPAY ==
[2023-11-28 18:25] VITALS: BP 129/65; PULSE 60; RESP 15; TEMP 36.5; O2SAT 97; BMI 32.6
--- NOTE | 2023-11-28 18:29 | CT_ITS ---
PROCEDURE INFORMATION: Exam: CT Head Without Contrast Exam date and time: 11/28/2023 6:45 PM Age: 83 years old Clinical indication: Injury or trauma; Fall; Additional info: Fall, rule out bleed TECHNIQUE: Imaging protocol: Computed tomography of the head without contrast. Radiation optimization: All CT scans at this facility use at least one of these dose optimization techniques: automated exposure control; mA and/or kV adjustment per patient size (includes targeted exams where dose is matched to clinical indication); or iterative reconstruction. COMPARISON: CT HEAD/BRAIN WO CON 09/16/2019 4:38 AM FINDINGS: Brain: Age-related volume loss. No acute intracranial hemorrhage, midline shift or significant intracranial mass effect. Cerebral ventricles: Ventriculomegaly is commensurate for degree of volume loss. Paranasal sinuses: Visualized sinuses are unremarkable. No fluid levels. Mastoid air cells: Partial opacification of the right mastoid air cells. Bones/joints: Unremarkable. No acute fracture. Soft tissues: Unremarkable. IMPRESSION: No acute intracranial abnormality.
--- NOTE | 2023-11-28 18:29 | XR_ITS ---
PROCEDURE INFORMATION: Exam: XR Left Elbow Exam date and time: 11/28/2023 6:44 PM Age: 83 years old Clinical indication: Injury or trauma; Fall; Blunt trauma (contusions or hematomas); Elbow; Left; Additional info: Left humerus and elbow pain TECHNIQUE: Imaging protocol: Radiologic exam of the left elbow. Views: 3 or more views. COMPARISON: CR XR SHOULDER LT MIN 2V 11/28/2023 6:44 PM FINDINGS: Bones/joints: No acute fracture or malalignment. Bony prominence of the lateral epicondyle likely chronic changes related to epicondylitis. Soft tissues: Normal. IMPRESSION: No acute osseous findings.
--- NOTE | 2023-11-28 18:29 | XR_ITS ---
PROCEDURE INFORMATION: Exam: XR Left Humerus Exam date and time: 11/28/2023 6:44 PM Age: 83 years old Clinical indication: Injury or trauma; Fall; Blunt trauma (contusions or hematomas); Arm, upper; Left; Additional info: Left humerus and elbow pain TECHNIQUE: Imaging protocol: Radiologic exam of the left humerus. Views: 2 or more views. COMPARISON: CR XR HUMERUS LT 09/16/2019 4:53 AM FINDINGS: Bones/joints: No acute fracture or malalignment. Soft tissues: Normal. IMPRESSION: No acute osseous findings.
--- NOTE | 2023-11-28 18:29 | CT_ITS ---
PROCEDURE INFORMATION: Exam: CT Cervical Spine Without Contrast Exam date and time: 11/28/2023 6:45 PM Age: 83 years old Clinical indication: Injury or trauma; Fall; Additional info: Fall, rule out c spine injury TECHNIQUE: Imaging protocol: Computed tomography of the cervical spine without contrast. Radiation optimization: All CT scans at this facility use at least one of these dose optimization techniques: automated exposure control; mA and/or kV adjustment per patient size (includes targeted exams where dose is matched to clinical indication); or iterative reconstruction. COMPARISON: CT CERVICAL SPINE WO CON 09/16/2019 4:41 AM FINDINGS: Bones/joints: Nonspecific straightening. Vertebral body height and AP alignment is preserved. Moderate degenerative change about the dens. Mild prevertebral osteophytosis. There are bilateral facet joint degenerative changes. No acute cervical spine fracture. No definite significant central canal stenosis within limitations of technique. Lungs: Lung apices are normal. Pleural spaces: No visible pneumothorax. Thyroid: Heterogeneous thyroid. Soft tissues: Unremarkable. IMPRESSION: No acute osseous abnormality.
--- NOTE | 2023-11-28 18:29 | XR_ITS ---
PROCEDURE INFORMATION: Exam: XR Left Forearm Exam date and time: 11/28/2023 6:44 PM Age: 83 years old Clinical indication: Injury or trauma; Fall; Blunt trauma (contusions or hematomas); Arm, lower; Left; Additional info: Left humerus and elbow pain TECHNIQUE: Imaging protocol: Radiologic exam of the left forearm. Views: 2 views. COMPARISON: CR XR FOREARM LT 2V 09/16/2019 4:53 AM FINDINGS: Bones/joints: No acute fracture or malalignment. Cantil calcifications adjacent to the radial styloid may represent calcific tendinitis. Osteoarthritic degenerative changes of the wrist. Soft tissues: Normal. IMPRESSION: No acute osseous findings.
--- NOTE | 2023-11-28 18:29 | XR_ITS ---
PROCEDURE INFORMATION: Exam: XR Left Shoulder Exam date and time: 11/28/2023 6:44 PM Age: 83 years old Clinical indication: Injury or trauma; Fall; Blunt trauma (contusions or hematomas); Shoulder; Left TECHNIQUE: Imaging protocol: Radiologic exam of the left shoulder. Views: 2 or more views. COMPARISON: CR XR SHOULDER LT MIN 2V 09/16/2019 4:53 AM FINDINGS: Bones/joints: No acute fracture or dislocation. Superior elevation of the humeral head likely related to underlying rotator cuff pathology. Glenohumeral acromioclavicular joint degenerative changes. Soft tissues: Normal. IMPRESSION: No acute osseous findings.
[2023-11-28 18:30] VITALS: BP 144/68; PULSE 61; O2SAT 95
--- NOTE | 2023-11-28 18:42 | PC.NURSE ---
PT GOING TO RADIOLOGY
--- NOTE | 2023-11-28 18:51 | ED_ITS ---
Discharge Plan Disposition Patient Disposition: Home, Self-Care Chief Complaint: Weakness Prescriptions Prescriptions: No Action trazodone 50 mg tablet 50 mg PO HS ProAir HFA 90 mcg/actuation HFA aerosol inhaler 2 puff INHALATION Q4-6H PRN (Reason: SHORTNESS OF BREATH/WHEEZING) tramadol 50 mg tablet 50 mg PO QID Qty: 120 5RF acetaminophen [Acetaminophen Extra Strength] 500 mg tablet 500 mg PO Q6H PRN (Reason: fever or pain) furosemide [Lasix] 20 mg tablet 20 mg PO DAILY PRN ibuprofen 200 mg tablet 200 mg PO Q6H PRN (Reason: pain) loperamide 2 mg capsule 2 mg PO Q4H PRN (Reason: diarrhea) Rx Instructions: administer after each loose stool until symptoms controlled; do not exceed 8 mg per 24 hrs ondansetron HCl 4 mg tablet 4 mg PO Q6H PRN (Reason: nausea) Robitussin Cough-Chest Marty DM 5-50 mg/5 mL liquid 20 ml PO Q4H PRN (Reason: cough and congestion) acetaminophen [Acetaminophen Extra Strength] 500 mg tablet 500 mg PO QID lorazepam 0.5 mg tablet 0.5 mg PO BID Qty: 30 5RF melatonin 1 mg tablet 2 mg PO 1700 PRN metformin 500 mg tablet 500 mg PO .at 8am and 5pm oxybutynin chloride 5 mg tablet 5 mg PO BID Refresh Lacri-Lube 56.8-42.5 % ointment 1 applic Eye-Left HS sertraline 50 mg tablet 50 mg PO DAILY Systane (propylene glycol) 0.4-0.3 % drops 1 drp Eye-Both TID loratadine 10 mg tablet 10 mg PO DAILY gabapentin 100 mg capsule 100 mg PO TID Qty: 90 0RF Austedo XR 24 mg tablet extended release 24 hr 24 mg PO DAILY Qty: 90 3RF Rx Instructions: Dago cowart aspirin 81 MG tablet,chewable 81 mg PO DAILY lactulose 10 GM packet 10 g PO DAILYP PRN (Reason: Constipation) omeprazole 20 MG tablet,delayed release (DR/EC) 20 mg PO DAILY metoprolol tartrate 25 MG tablet 25 mg PO BID Referrals Follow up/Referrals: Provider,Referral, MD [Referring] - See instructions Clinical Impressions Clinical Impression: Arm pain, left, Fall Discharge ED Provider: Jose David Jose General Adult HPI General Chief complaint: Weakness Stated complaint: fall Time Seen by Provider: 11/28/23 18:29 Mode of Arrival: EMS Source of Information: Patient, EMS and Medical Record Limitations: No Limitations Description of Symptoms (Recalled from ER Triage Doc. by RN): c/o left shoulder pain after falling while trying to get to the bathroom, denies any loc or other injuries at this time History of Present Illness HPI narrative: 83-year-old female history of hypertension, hyperlipidemia, diabetes, schizophrenia, bipolar disorder, tardive dyskinesia presenting with fall. Patient states that she was transferring from her wheelchair into the bathroom when she fell. She landed on her left side. Does not think she struck her head. Did not lose consciousness. Having pain in her left mid humerus and elbow. Able to move her fingers, denies weakness or numbness. No neck or back pain, but patient arrives in cervical collar. Related Data Home Medications Medication Instructions Recorded Confirmed aspirin 81 mg chewable tablet 81 mg PO DAILY HEART/CIRCULATION 05/18/18 10/11/23 albuterol sulfate 90 mcg/actuation 2 puff inhalation Q4-6H PRN 02/12/19 10/11/23 aerosol inhaler (ProAir HFA) SHORTNESS OF BREATH/WHEEZING lactulose 10 gram oral packet 10 g PO DAILYP PRN Constipation 04/03/19 10/11/23 omeprazole 20 mg tablet,delayed 20 mg PO DAILY GERD 09/11/19 10/11/23 release metoprolol tartrate 25 mg tablet 25 mg PO BID htn 09/16/19 10/11/23 trazodone 50 mg tablet 50 mg PO HS 01/01/21 10/11/23 acetaminophen 500 mg tablet 500 mg PO Q6H PRN fever or pain 09/10/23 10/11/23 (Acetaminophen Extra Strength) acetaminophen 500 mg tablet 500 mg PO QID 09/10/23 10/11/23 (Acetaminophen Extra Strength) dextromethorphan 5 mg-guaifenesin 20 ml PO Q4H PRN cough and 09/10/23 10/11/23 50 mg/5 mL oral liquid (Robitussin congestion Cough-Chest Congestion DM) furosemide 20 mg tablet (Lasix) 20 mg PO DAILY PRN 09/10/23 10/11/23 ibuprofen 200 mg tablet 200 mg PO Q6H PRN pain 09/10/23 10/11/23 loperamide 2 mg capsule 2 mg PO Q4H PRN diarrhea 09/10/23 10/11/23 loratadine 10 mg tablet 10 mg PO DAILY 09/10/23 10/11/23 melatonin 1 mg tablet 2 mg PO 1700 PRN 09/10/23 10/11/23 metformin 500 mg tablet 500 mg PO .at 8am and 5pm 09/10/23 10/11/23 ondansetron HCl 4 mg tablet 4 mg PO Q6H PRN nausea 09/10/23 10/11/23 oxybutynin chloride 5 mg tablet 5 mg PO BID urinary incontinence 09/10/23 10/11/23 peg 400-propylene glycol 0.4 %-0.3 1 drp Eye-Both TID dry eyes 09/10/23 10/11/23 % eye drops (Systane (propylene glycol)) sertraline 50 mg tablet 50 mg PO DAILY 09/10/23 10/11/23 white petrolatum-mineral oil 56.8 1 applic Eye-Left HS 09/10/23 10/11/23 %-42.5 % eye ointment (Refresh Lacri-Lube) Previous Rx's Medication Instructions Recorded tramadol 50 mg tablet 50 mg PO QID pain #120 tabs 08/21/23 lorazepam 0.5 mg tablet 0.5 mg PO BID #30 tabs 09/10/23 gabapentin 100 mg capsule 100 mg PO TID #90 caps 11/24/23 deutetrabenazine 24 mg 24 mg PO DAILY behavior #90 tabs 11/26/23 tablet,extended release 24 hr (Austedo XR) Allergies Allergy/AdvReac Type Severity Reaction Status Date / Time No Known Allergies Allergy Verified 10/11/23 18:47 [facility] Disclaimer: The information contained in this section may have been updated after the patient was seen, as this information can be updated by other users. Medical History (Updated 11/28/23 @ 19:18 by Jose David Jose MD) Bilateral primary osteoarthritis of knee Bipolar disorder, unspecified Age-related nuclear cataract, bilateral Tardive dyskinesia Cholelithiasis Hiatal hernia Inguinal hernia Vomiting Fall from wheelchair Contusion of left arm Fall at [facility] Fracture of right inferior pubic ramus with routine healing Tremor C. difficile enteritis Febrile illness, acute Febrile illness, acute Tinea corporis Hyponatremia Obesity (BMI 30-39.9) Dystonia Schizophrenia Sepsis Acute renal failure (ARF) HCAP (healthcare-associated pneumonia) Fall Contusion of hip, left Social History Smoking Status: Unknown if ever smoked alcohol intake: never substance use type: denies use current occupational status: retired Travel in the last 8 weeks: None household members: other housing: [facility] ROS Obtained: Yes All systems reviewed & no additional complaints except as documented Physical Exam General General appearance: alert and in no apparent distress Head Head exam: atraumatic and normocephalic Eye Eye exam: Present normal appearance, PERRL and EOMI ENT ENT exam: Present mucous membranes moist Neck Neck exam: Present trachea midline and other (C-collar in place, no tenderness on my exam) Respiratory Respiratory exam: Present normal lung sounds bilaterally; Absent respiratory distress, wheezes, stridor, accessory muscle use or prolonged expiratory phase Cardiovascular Cardiovascular exam: Present regular rate and normal rhythm Abdominal Exam Abdominal exam: Present soft; Absent distention, tenderness, guarding, rebound or rigidity Extremities Exam Extremities exam: Present edema and other (Tenderness, swelling about the shaft left humerus and left elbow. Neurovascular intact) Neurological Exam Neurological exam: Present alert, oriented X3, CN II-XII intact and normal gait; Absent motor sensory deficit Skin Skin exam: Present warm and dry; Absent diaphoresis or erythema Medical Decision Making Medical Records Medical records reviewed: Yes I reviewed the patient's medical records. Otis Inquiry Pt receiving controlled substance: No Otis was queried for this patient: No Vital Signs: 11/28/23 18:25 11/28/23 18:30 Temperature 97.7 F Temperature Source Oral Pulse Rate 61 Pulse Rate [Left Radial] 60 Respiratory Rate 15 Blood Pressure 144/68 H Blood Pressure [Right Arm] 129/65 Blood Pressure Mean [Right Arm] 86 Blood Pressure Source [Right Arm] Automatic Cuff Blood Pressure Position [Right Arm] Sitting 02 Sat by Pulse Oximetry 97 95 Oxygen Delivery Method Room Air Orders (Tests/Meds): ED MEDICATIONS Discontinued Medications Generic Name Dose Route Start Last Admin Trade Name Freq PRN Reason Stop Dose Admin Acetaminophen 1,000 mg 11/28/23 19:02 Acetaminophen 500mg Tab PO 03/15/24 19:03 ONCE ONE Ibuprofen 600 mg 11/28/23 19:02 Ibuprofen 600 Mg Tablet PO 11/28/23 19:03 ONCE ONE ORDERS Category Date Time Status CT cervical spine wo con Stat Cat Scan 11/28/23 18:[address] head/brain wo con Stat Cat Scan 11/28/23 18:29 Completed Elbow XR left mininum 3 views [XR elbow LT min 3V] Stat Exams 11/28/23 18:29 Completed Femur XR left 2 views [XR femur LT 2V] Stat Exams 11/28/23 18:56 Ordered Forearm XR left 2 views [XR forearm LT 2V] Stat Exams 11/28/23 18:29 Completed Hip XR left minimum 2 views [XR hip LT 2-3V w/pelvis] Exams 11/28/23 18:56 Ordered Stat Humerus XR left [XR humerus LT] Stat Exams 11/28/23 18:29 Completed Shoulder XR left minimum 2 views [XR shoulder LT min 2V Exams 11/28/23 18:29 Completed ] Stat Medical Decision Narrative: 83-year-old female history of hypertension, hyperlipidemia, diabetes, schizophrenia, bipolar disorder, tardive dyskinesia presenting with fall. Patient states that she was transferring from her wheelchair into the bathroom when she fell. She landed on her left side. Does not think she struck her head. Did not lose consciousness. Having pain in her left mid humerus and elbow. Able to move her fingers, denies weakness or numbness. No neck or back pain, but patient arrives in cervical collar. History was obtained via conversation with patient and EMS. On arrival, patient hemodynamically stable, alert, appropriate, GCS 15, moving all extremities spontaneously, pupils equal and reactive to light. Full physical exam performed and significant for cervic al collar. Patient has no obvious trauma to the head or neck. No neck tenderness from what I can palpate with cervical collar on. Patient has no chest wall tenderness, no right upper extremity tenderness, no bruising. She does have left upper extremity tenderness starting at midshaft left humerus down to elbow. Neurovascularly intact. She is ranging elbow, but not ranging shoulder secondary to pain. Differential includes intracranial bleed, cervical spine injury, fracture, dislocation, sprain, strain, benign MSK injury, among others. Patient was given Tylenol and Motrin p.o. for symptomatic management and correction of underlying abnormalities. Workup independently interpreted and significant for no acute intracranial hemorrhage or cervical spine injury. No left upper extremity abnormalities of the shoulder, humerus, elbow, or forearm. See radiology read for full review of final results. On reevaluation, patient resting comfortably. Because patient at baseline without signs or symptoms of clinical decompensation, deemed appropriate for discharge. Results were relayed to patient who voiced understanding and were agreeable to outpatient management and follow up. At the time of discharge the patient was hemodynamically stable, tolerating PO, and mobilizing appropriately. Critical Care Critical Care Time Critical Care Time: No
--- NOTE | 2023-11-28 18:54 | PC.NURSE ---
patient back in room at this time.
--- NOTE | 2023-11-28 18:56 | XR_ITS ---
PROCEDURE INFORMATION: Exam: XR Left Femur Exam date and time: 11/28/2023 7:00 PM Age: 83 years old Clinical indication: Pain; Thigh; Left; Additional info: Fall, left sided pain TECHNIQUE: Imaging protocol: Radiologic exam of the left femur. Views: 2 views. COMPARISON: CR XR HIP LT 2-3V W/PELVIS 11/28/2023 7:00 PM FINDINGS: Bones/joints: No acute fracture or malalignment. Osteoarthritis. Soft tissues: Dystrophic calcifications lateral to the distal femoral metadiaphysis. Vasculature: Vascular calcifications. IMPRESSION: No acute osseous findings.
--- NOTE | 2023-11-28 18:56 | XR_ITS ---
PROCEDURE INFORMATION: Exam: XR Left Hip Exam date and time: 11/28/2023 7:00 PM Age: 83 years old Clinical indication: Injury or trauma; Fall; Blunt trauma (contusions or hematomas); Left; Hip TECHNIQUE: Imaging protocol: Radiologic exam of the left hip. Views: 2 or 3 views hip with pelvis when performed. COMPARISON: CT ABDOMEN PELVIS W CON 09/18/2019 8:10 PM FINDINGS: Bones/joints: No acute fracture or malalignment. Mild osteoarthritis. Soft tissues: Unremarkable. Organs: Calcified uterine fibroids. IMPRESSION: No acute osseous findings.
[2023-11-28] MEDS: ACETAMINOPHEN 500MG TAB 1000 MG PO (19:35)
[2023-11-28] MEDS: IBUPROFEN 600 MG TABLET PO (19:35)
[2023-11-28 20:39] VITALS: BP 135/78; PULSE 80; RESP 18; TEMP 36.8
== END 2023-11-28 20:39 | disposition home or self-care (01) ==
PROVIDERS: Emergency Provider Emergency Medicine; PCP Internal Medicine
DX: M25.512 Pain in left shoulder (principal); M79.622 Pain in left upper arm; I10 Essential (primary) hypertension; E78.5 Hyperlipidemia, unspecified; E11.9 Type 2 diabetes mellitus without complications; F25.0 Schizoaffective disorder, bipolar type; W18.30XA Fall on same level, unspecified, initial encounter
CPT/HCPCS: 70450; 72125; 73030; 73060; 73080; 73090; 73502; 73552; 99285

== ENCOUNTER 2023-12-19 15:44 | Outpatient (CLI) | payer MEDICARE, MEDICAID, SELFPAY | END 2023-12-19 23:59 | LOC: LAB.DROPOF 15:45 | PROVIDERS: PCP Internal Medicine; Visit Provider Internal Medicine | DX: R53.83 Other fatigue (principal) ==

== ENCOUNTER 2023-12-19 15:48 | Outpatient (CLI) | payer MEDICARE, MEDICAID, SELFPAY ==
[2023-12-19 16:29] LABS: Microscopic, Urine URINE MICROSCOPIC (MICROSCOPIC)
[2023-12-19 16:33] LABS: Basophils # 0.1 K/mm3 (0-0.2); Basophils % 1.1 % (0.1-2.0); Eosinophils # 0.1 K/mm3 (0.0-0.4); Eosinophils % 1.8 % (0.1-12.0); Hematocrit 43.2 % (37.0-47.0); Hemoglobin 13.5 g/dL (12.2-16.2); Lymphocytes # 2.2 K/mm3 (0.7-4.5); Lymphocytes % 29.1 % (10-50); Mean Corpuscular HGB Conc 31.3 g/dL (31.8-35.4); Mean Corpuscular Hemoglobin 29.8 pg (27.0-31.2); Mean Corpuscular Volume 95.3 fl (81-99); Monocytes # 0.4 K/mm3 (0.1-1.0); Monocytes % 4.9 % (1.7-9.3); Neutrophils # 4.8 K/mm3 (1.8-7.8); Neutrophils % 63.1 % (37.0-80.0); Platelet Count 242 K/mm3 (142-424); Red Blood Count 4.54 M/mm3 (4.20-5.40); Red Cell Distribution Width 14.1 % (11.5-17.5); White Blood Count 7.5 K/mm3 (4.8-10.8)
[2023-12-19 16:42] LABS: Chloride 104 mmol/L (98-107); Sodium 141 mmol/L (136-145)
[2023-12-19 16:43] LABS: Potassium 4.1 mmoL/L (3.5-5.1)
[2023-12-19 16:45] LABS: Alanine Aminotransferase 39 U/L (12-78); Albumin Level 4.1 g/dl (3.5-5.0); Albumin/Globulin Ratio 1.1 (1.1-1.8); Alkaline Phosphatase 53 U/L (38-126); Anion Gap 11.1 mEq/L (5-15); Aspartate Amino Transferase 64 U/L (14-36); Bilirubin,Total 0.5 mg/dl (0.2-1.3); Blood Urea Nitrogen 21 mg/dl (7-17); Carbon Dioxide 30 mmol/L (22.0-30.0); Estimated Glomerular Filt Rate 60 ml/min (>60); GFR (African American) 73 ML/MIN (>60); Globulin 3.9 g/dL (1.3-3.2)
[2023-12-19 16:46] LABS: Calcium 9.3 mg/dl (8.4-10.2); Glucose 129 mg/dl (74-100)
[2023-12-19 21:29] LABS: Appearance,Urine SL CLOUDY (Clear); Blood, Urine Negative (Negative); Color,Urine YELLOW (Yellow); Glucose,Urine (UA) Negative (Negative); Ketones,Urine 1+ (Negative); Leukocyte Esterase,Urine Negative (Negative); Nitrate,Urine Negative (Negative); Protein,Urine 2+ (Negative); Specific Gravity, Urine >= 1.030 (1.005-1.030)
[2023-12-19 21:37] LABS: Bilirubin,Urine 1+ (Negative)
[2023-12-19 22:03] LABS: Bacteria,Urine 1+ /lpf; Calcium Oxalate Crystals,Urine 3+ /lpf; RBC,Urine Occasional #/hpf (0-3); WBC,Urine Occasional #/hpf (0-3)
== END 2023-12-19 23:59 ==
LOC: LAB.DROPOF 15:49
PROVIDERS: PCP Internal Medicine; Visit Provider Internal Medicine
DX: A04.72 Enterocolitis due to Clostridium difficile, not specified as recurrent (principal); R32 Unspecified urinary incontinence; N39.0 Urinary tract infection, site not specified; B96.89 Other specified bacterial agents as the cause of diseases classified elsewhere
CPT/HCPCS: 80053; 81001; 85025; 87086

== ENCOUNTER 2024-01-01 09:31 | Outpatient (CLI) | payer MEDICARE, MEDICAID, SELFPAY ==
--- NOTE | 2024-01-01 09:38 | XR_ITS ---
FINAL REPORT CLINICAL HISTORY: Left Wrist fx fall last friday COMPARISON: None FINDINGS: LEFT WRIST Three views demonstrate moderate hypertrophic changes of the basilar joint consistent with osteoarthritis. There is an ossific density adjacent to the radial styloid which appears irregular and may represent small avulsion of the radial styloid. No other fracture seen. The soft tissues are unremarkable. IMPRESSION: Possible small avulsion radial styloid. Correlate with site of point tenderness. Reviewed, Interpreted and Dictated by Marcus Kapadia MD Transcribed by Katia Washington Authenticated and [facility]
== END 2024-01-01 23:59 ==
LOC: RAD 09:32
PROVIDERS: PCP Internal Medicine; Visit Provider Orthopaedic Surgery
DX: M25.532 Pain in left wrist (principal)
CPT/HCPCS: 73110

== ENCOUNTER 2024-11-17 15:46 | Outpatient (CLI) | payer MEDICARE, MEDICAID, SELFPAY ==
[2024-11-17 16:16] LABS: Microscopic, Urine URINE MICROSCOPIC (MICROSCOPIC)
[2024-11-17 16:24] LABS: Basophils # 0.1 K/mm3 (0-0.2); Basophils % 0.7 % (0.1-2.0); Eosinophils # 0.3 K/mm3 (0.0-0.4); Eosinophils % 4.7 % (0.1-12.0); Hematocrit 37.3 % (37.0-47.0); Hemoglobin 12.1 g/dL (12.2-16.2); Lymphocytes # 3.5 K/mm3 (0.7-4.5); Lymphocytes % 49.2 % (10-50); Mean Corpuscular HGB Conc 32.4 g/dL (31.8-35.4); Mean Corpuscular Hemoglobin 29.5 pg (27.0-31.2); Mean Platelet Volume 10.5 fl (7.4-10.4); Monocytes # 0.4 K/mm3 (0.1-1.0); Monocytes % 5.9 % (1.7-9.3); Neutrophils # 2.8 K/mm3 (1.8-7.8); Neutrophils % 39.4 % (37.0-80.0); Platelet Count 209 K/mm3 (142-424); Red Cell Distribution Width 13.2 % (11.5-17.5); White Blood Count 7.1 K/mm3 (4.8-10.8)
[2024-11-17 18:22] LABS: Albumin Level 4.3 g/dl (3.5-5.0); Chloride 102 mmol/L (98-107); Potassium 4.5 mmoL/L (3.5-5.1); Sodium 139 mmol/L (136-145)
[2024-11-17 18:25] LABS: Alanine Aminotransferase 18 U/L (12-78); Albumin/Globulin Ratio 1.4 (1.1-1.8); Alkaline Phosphatase 82 U/L (38-126); Anion Gap 11.5 mEq/L (5-15); Aspartate Amino Transferase 28 U/L (14-36); Bilirubin,Total 0.2 mg/dl (0.2-1.3); Blood Urea Nitrogen 24 mg/dl (7-17); Carbon Dioxide 30 mmol/L (22.0-30.0); Estimated Glomerular Filt Rate 60 ml/min (>60); GFR (African American) 73 ML/MIN (>60); Total Protein,Serum 7.3 g/dl (6.3-8.2)
[2024-11-17 18:26] LABS: Calcium 9.2 mg/dl (8.4-10.2); Glucose 86 mg/dl (74-100)
[2024-11-17 22:08] LABS: Appearance,Urine CLEAR (Clear); Bilirubin,Urine Negative (Negative); Blood, Urine Negative (Negative); Color,Urine YELLOW (Yellow); Glucose,Urine (UA) Negative (Negative); Ketones,Urine 1+ (Negative); Leukocyte Esterase,Urine Negative (Negative); Nitrate,Urine Negative (Negative); PH,Urine 6.5 (5.0-8.5); Protein,Urine Negative (Negative); Specific Gravity, Urine 1.025 (1.005-1.030)
[2024-11-17 23:06] LABS: Hemoglobin A1C 6.4 % (4.0-6.0)
[2024-11-18 00:28] LABS: Bacteria,Urine 2+ /lpf
== END 2024-11-17 23:59 | disposition home or self-care (01) ==
LOC: LAB.DROPOF 15:47
PROVIDERS: PCP Family Medicine; Visit Provider Family Medicine
DX: A04.72 Enterocolitis due to Clostridium difficile, not specified as recurrent (principal); E11.69 Type 2 diabetes mellitus with other specified complication; R50.9 Fever, unspecified
CPT/HCPCS: 80053; 81001; 83036; 85025; 87086

== ENCOUNTER 2024-12-06 08:30 | Outpatient (CLI) | payer MEDICARE, MEDICAID, SELFPAY ==
[2024-12-06 08:56] LABS: Anion Gap 10.8 mEq/L (5-15); Blood Urea Nitrogen 14 mg/dl (7-17); Calcium 9.8 mg/dl (8.4-10.2); Carbon Dioxide 31 mmol/L (22.0-30.0); Chloride 103 mmol/L (98-107); Estimated Glomerular Filt Rate 80 ml/min (>60); GFR (African American) 97 ML/MIN (>60); Glucose 108 mg/dl (74-100); Potassium 3.8 mmoL/L (3.5-5.1); Sodium 141 mmol/L (136-145)
== END 2024-12-06 23:59 | disposition home or self-care (01) ==
LOC: LAB.DROPOF 08:31
PROVIDERS: PCP Family Medicine; Visit Provider Family Medicine
DX: I11.0 Hypertensive heart disease with heart failure (principal); I50.9 Heart failure, unspecified; E11.69 Type 2 diabetes mellitus with other specified complication; Z13.228 Encounter for screening for other metabolic disorders
CPT/HCPCS: 36415; 80048

== ENCOUNTER 2025-03-16 07:08 | Outpatient (CLI) | payer MEDICARE, MEDICAID, SELFPAY ==
--- OUTSIDE RECORDS SUMMARY | 2025-03-16 07:10 | XMS_ITS | Clinical Summary ---
Author Organization Healthcare Address [address] [place] [address] Care Team Providers Care Manager Utility Name Role Phone Bryon Beaulieu MD Primary Care Provider [phone] Immunizations Immunization Administration Dates Next Due Pneumococcal, Unspecified 07/13/2009 Tdap 07/13/2009 Social History Tobacco Use Types Packs/Day Years Used Date Smoking Tobacco: Never Assessed Comments Unknown Sex and Gender Information Value Date Recorded Sex Assigned at Not on file Legal Sex Female 7:42 PM EDT Gender Identity Not on file Sexual Orientation Not on file Last Filed Vital Signs Vital Sign Reading Time Taken Comments Blood Pressure - - Pulse - - Temperature - - Respiratory Rate - - Oxygen Saturation - - Inhaled Oxygen Concentration - - Weight 97.8 kg (215 lb 9.8 oz) 05/23/2017 8:49 A M EDT Height 152.4 cm (5') 07/18/2016 3:15 PM EDT Body Mass Index 42.11 07/18/2016 3:15 PM EDT Plan of Treatment Not on file Care Teams Manager Utility Relationship Specialty Start Date End Date Bryon Beaulieu MD [address] [place] [address] PCP - General 01/26/21
--- OUTSIDE RECORDS SUMMARY | 2025-03-16 07:10 | XMS_ITS | Clinical Summary ---
Author Organization [facility] Address [address] [address] Care Team Providers Care Upper Caser Name Role Phone Unavailable Primary Care Provider Unavailabl e Allergies No known active allergies Medications * This document contains information received from the source organization and may not represent a complete record from that organization. AUSTEDO 6 mg Oral Tablet TAKE 6 MG BY MOUTH 2 TIMES DAILY. 60 Tab 5 10/25/2020 Active LORazepam (ATIVAN) 0.5 mg Oral Tablet Take 1 Tablet by mouth 2 times daily. 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 Bipolar affective disorder in remission 12/28/19 16 ELVIS (generalized anxiety disorder) 12/28/2015 Medical History Medical History Date Comments Enterocolitis due to Clostridium difficile, not specified as recurrent Diabetes mellitus (HCC) Bilateral post-traumatic osteoarthritis of knee Chronic kidney disease Social History Tobacco Use Types Packs/Day Years Used Date Smoking Tobacco: Former Smokeless Tobacco: Never Tobacco Cessation:Counseling Given: No Alcohol Use Standard Drinks/Week Comments Not Currently 0 (1 standard drink = 0.6 oz pur e alcohol) Comments Unknown Sex and Gender Information Value Date Recorded Sex Assigned at Not on file Legal Sex Female 3:19 AM EDT Gender Identity Not on file Sexual Orientation Not on file Obstetrics History Plan of Treatment Health Maintenance Due Date Last Done Comments Wellness Exam Medicare 1943 DTaP/TDaP/Td (1 - Tdap) 1961 Pneumococcal Vaccine 50+ (1 of 1 - PCV) 01/23/1992 Zoster (1 of 2) 01/23/1992 Bone Density Screening 2007 RSV or 60+ (1 - 1-d ose 75+ series) 2017 COVID-19 Vaccine (2023-2 5 season) 2024 Influenza Vaccine (Season Ended) 2025 Hepatitis B Vaccine Aged Out No longe r eligible based on patient's age to complete this topic Meningococcal B Vaccine Aged Out No l onger eligible based on patient's age to complete this topic Insurance MEDICARE [place] PART A AND B [place]ICA[place] [address] [place]
[2025-03-16 07:53] LABS: Cholesterol 115 mg/dl (140-200); HDL Cholesterol 53 mg/dl (40-60); Triglycerides 112 mg/dl (30-150)
[2025-03-16 11:24] LABS: Hemoglobin A1C 7.7 % (4.0-6.0)
== END 2025-03-16 23:59 | disposition home or self-care (01) ==
PROVIDERS: PCP Nurse Practitioner Family; Visit Provider Nurse Practitioner Family
DX: E11.9 Type 2 diabetes mellitus without complications (principal); I10 Essential (primary) hypertension
CPT/HCPCS: 36415; 80061; 83036

== ENCOUNTER 2025-07-01 09:04 | Outpatient (CLI) | payer MEDICARE, MEDICAID, SELFPAY ==
--- OUTSIDE RECORDS SUMMARY | 2025-07-01 09:07 | XMS_ITS | Clinical Summary ---
Author Organization [facility] Address [address] [address] Care Team Providers Care Service Writer Name Role Phone Unavailable Primary Care Provider [...] on file Sexual Orientation Not on file Plan of Treatment Health Maintenance Due Date Last Done Comments Wellness Exam Medicare 1943 DTaP/TDaP/Td (1 - Tdap) 1961 Pneumococcal Vaccine 50+ (1 of 1 - PCV) 01/23/1992 Zoster (1 of 2) 01/23/1992 Bone Density Screening 2007 RSV or 60+ (1 - 1-d ose 75+ series) 2017 COVID-19 Vaccine (2023-2 5 season) 2025 Influenza Vaccine (#1) 2025 Hepatitis B Vaccine Aged Out No longe r eligible based on patient's age to complete this topic Meningococcal B Vaccine Aged Out No l onger eligible based on patient's age to complete this topic Insurance [place] [address] [place] [address] [place]
--- OUTSIDE RECORDS SUMMARY | 2025-07-01 09:07 | XMS_ITS | Clinical Summary ---
Author Organization Healthcare Address [address] [place] [address] Care Team Providers Care Home Care Consultant Name Role Phone Bryon Beaulieu MD Primary Care Provider [phone] Immunizations Immunization Administration Dates Next Due Pneumococcal, [...] of Treatment Not on file Care Teams Home Care Consultant Relationship Specialty Start Date End Date Bryon Beaulieu MD [address] [place] [address] PCP - General 01/26/21
[2025-07-01 09:25] LABS: Hematocrit 39.5 % (37.0-47.0); Hemoglobin 12.6 g/dL (12.2-16.2); Immature Granulocytes % 0.1 %; Mean Corpuscular HGB Conc 31.9 g/dL (31.8-35.4); Mean Corpuscular Hemoglobin 28.9 pg (27.0-31.2); Mean Corpuscular Volume 90.6 fl (81-99); Nucleated Red Blood Cells % 0 %; Platelet Count 228 K/mm3 (142-424); Red Blood Count 4.36 M/mm3 (4.20-5.40); Red Cell Distribution Width-SD 43.6 fL; White Blood Count 7.0 K/mm3 (4.8-10.8)
[2025-07-01 09:43] LABS: Alanine Aminotransferase 20 U/L (12-78); Albumin Level 4.1 g/dl (3.5-5.0); Albumin/Globulin Ratio 1.2 (1.1-1.8); Alkaline Phosphatase 94 U/L (38-126); Anion Gap 15.0 mEq/L (5-15); Aspartate Amino Transferase 30 U/L (14-36); Bilirubin,Total 0.5 mg/dl (0.2-1.3); Blood Urea Nitrogen 18 mg/dl (7-17); Calcium 8.7 mg/dl (8.4-10.2); Carbon Dioxide 28 mmol/L (22.0-30.0); Chloride 102 mmol/L (98-107); Cholesterol 123 mg/dl (140-200); Creatinine,Serum 0.90 mg/dl (0.52-1.04); Estimated Glomerular Filt Rate 60 ml/min (>60); GFR (African American) 72 ML/MIN (>60); Globulin 3.3 g/dL (1.3-3.2); Glucose 105 mg/dl (74-100); HDL Cholesterol 56 mg/dl (40-60); Potassium 4.0 mmoL/L (3.5-5.1); Sodium 141 mmol/L (136-145); Total Protein,Serum 7.4 g/dl (6.3-8.2); Triglycerides 134 mg/dl (30-150)
[2025-07-01 10:10] LABS: Hemoglobin A1C 6.3 % (4.0-6.0)
== END 2025-07-01 23:59 | disposition home or self-care (01) ==
PROVIDERS: PCP Family Medicine; Visit Provider Family Medicine
DX: D64.9 Anemia, unspecified (principal); E11.9 Type 2 diabetes mellitus without complications
CPT/HCPCS: 36415; 80053; 80061; 83036; 85025

== ENCOUNTER 2025-09-12 08:31 | Outpatient (CLI) | payer MEDICARE, MEDICAID, SELFPAY ==
--- OUTSIDE RECORDS SUMMARY | 2025-09-12 08:37 | XMS_ITS ---
Author Organization Unknown ENCOUNTERS Encounter Performer Location Date Diagnosis Diagnosis Status Emergency [place] [address] [place] [address] [id number] [facility] Pre Admit [place] [address] [place] [address] [id number] *Note: Encounters from your own facility or health system may be excluded. Allergies, Adverse Reactions, Alerts Allergen Type Severity Identification Date Medications Name Date Quantity Days Supplied GPI Number
--- OUTSIDE RECORDS SUMMARY | 2025-09-12 08:37 | XMS_ITS | Clinical Summary ---
Author Organization [facility] [facility] Address [address] [address] Care Team Providers Care Oil Processing Technician Name Role Phone Unavailable Primary Care Provider [...] 1-d ose 75+ series) 2017 COVID-19 Vaccine ( - 2024-2 6 season) 2025 Influenza Vaccine (#1) 2025 Hepatitis [...]
--- OUTSIDE RECORDS SUMMARY | 2025-09-12 08:37 | XMS_ITS | Clinical Summary ---
Author Organization Healthcare Address [address] [place] [address] Care Team Providers Care Foam Molder Name Role Phone Bryon Beaulieu MD Primary Care Provider [phone] Immunizations Immunization Administration Dates Next Due Pneumococcal, [...] of Treatment Not on file Care Teams Foam Molder Relationship Specialty Start Date End Date Bryon Beaulieu MD [address] [place] [address] PCP - General 01/26/21
[2025-09-12 09:54] LABS: Anion Gap 12.5 mEq/L (5-15); Blood Urea Nitrogen 19 mg/dl (7-17); Calcium 9.4 mg/dl (8.4-10.2); Carbon Dioxide 28 mmol/L (22.0-30.0); Chloride 105 mmol/L (98-107); Creatinine,Serum 1.00 mg/dl (0.52-1.04); Estimated Glomerular Filt Rate 53 ml/min (>60); GFR (African American) 64 ML/MIN (>60); Glucose 119 mg/dl (74-100); Potassium 4.5 mmoL/L (3.5-5.1); Sodium 141 mmol/L (136-145)
== END 2025-09-12 23:59 | disposition home or self-care (01) ==
LOC: LAB.DROPOF 08:32
PROVIDERS: PCP Family Medicine; Visit Provider Family Medicine
DX: I50.9 Heart failure, unspecified (principal)
CPT/HCPCS: 36415; 80048